=== PATIENT | female | born 1960 | race Caucasian/White ===

== ENCOUNTER → 2016-12-07 | Outpatient (CLI) | payer OTHER ==
--- NOTE | 2016-12-07 12:57 | CT ---
EXAMINATION TYPE: CT chest wo con DATE OF EXAM: 12/07/2016 12:46 PM COMPARISON: Previous study dated 08/09/2016. TECHNIQUE: Helical acquisition through the chest and upper abdomen was obtained without intravenous c ontrast. The data was reformatted in axial, coronal and sagittal projections. HISTORY: Shortness of breath CT DLP: 211.5 mGycm Automated exposure control for dose reduction was used. FINDINGS: There are changes of bullous emphysema throughout both lungs. There is some residual groundglass opac ity present. This has improved from previous. A 1.6 cm nodule seen in the left lingula previously tod ay measures 8.1 mm. A left basilar nodule which previously measured 10.1 mm today measures 9.8 mm Elongated nodule in the right lung previously is not visualized today. There is no significant axillary, internal mammary, mediastinal or hilar adenopathy. There is no pleu ral or pericardial fluid. The heart is not enlarged. Visualized portions of the upper abdomen are normal. There is minimal hypertrophic spondylosis within the spine. IMPRESSION: 1. EXTENSIVE CHANGES OF BULLOUS EMPHYSEMA. 2. BOTH LEFT-SIDED PULMONARY NODULES HAVE DECREASED IN SIZE FROM THE PREVIOUS STUDY. 3. RIGHT-SIDED PULMONARY NODULE WAS NOT IDENTIFIED.
== END | disposition home or self-care (01) ==
LOC: RADCTMAIN 12:20
PROVIDERS: ATTEND Internal Medicine
DX: J43.9 Emphysema, unspecified (principal); R91.8 Other nonspecific abnormal finding of lung field
CPT/HCPCS: 71250

== ENCOUNTER → 2017-06-01 | Outpatient (CLI) | payer OTHER ==
--- NOTE | 2017-06-01 12:42 | CT ---
EXAMINATION TYPE: CT chest wo con DATE OF EXAM: 06/01/2017 COMPARISON: CT chest dated 12/07/2016 and 08/05/2016. HISTORY: Follow up nodules per patient CT DLP: 217.5 mGycm. Automated Exposure Control for Dose Reduction was Utilized. TECHNIQUE: CT scan of the thorax is performed without IV contrast. FINDINGS: LUNGS: Severe panlobular bullous emphysematous changes are seen throughout the lungs with a gradient effect, greatest in the apices. Rounded noncalcified 9 mm left lower lobe pulmonary nodule is unchanged in size given differences in measurement technique. 7 mm left lower lobe noncalcified pulmonary nodule abutting the interlobar fis sure was previously described as lingular and is unchanged given differences in measurement technique . Focal area of right apical groundglass opacity is unchanged from the prior located medially on imag e 16 of series 4. Elongated lateral right lower lobe 7.5 mm noncalcified pulmonary nodule is unchange d in retrospect. Areas of pleural-parenchymal scarring are present bilaterally at the lower lobes. No pneumothorax or pleural effusion. No focal consolidation. The tracheobronchial tree is patent. MEDIASTINUM: Lack of IV contrast is noted to limit evaluation for mediastinal and especially hilar ad enopathy. There are no definitive greater than 1 cm hilar or mediastinal lymph nodes. No cardiomega ly or pericardial effusion is seen. OTHER: Descending duodenal diverticulum is air-filled and inspissated debris filled. Peripherally prem cified right lower outer quadrant breast mass is present, benign-appearing. This may relate to evolvi ng fat necrosis. Mild degenerative changes of the thoracic spine are noted as Schmorl's nodes and int ervertebral disc space narrowing. IMPRESSION: 1. Overall stable pulmonary nodules dating back to 08/05/2016. Follow-up CT thorax is recommended in 12 months for evaluation of interval growth. 2. No gross evidence of thoracic adenopathy. 3. Extensive panlobular bullous emphysematous changes.
== END ==
LOC: RADCTMAIN 12:07
PROVIDERS: ATTEND Internal Medicine Pulmonary Disease
DX: J43.9 Emphysema, unspecified (principal); R91.8 Other nonspecific abnormal finding of lung field
CPT/HCPCS: 71250

== ENCOUNTER → 2018-06-04 | Outpatient (CLI) | payer OTHER ==
--- NOTE | 2018-06-04 17:21 | CT ---
EXAMINATION TYPE: CT chest w con DATE OF EXAM: 06/04/2018 COMPARISON: 06/01/2017 HISTORY: SOB, Pulmonary nodules CT DLP: 253.60 mGycm, Automated exposure control for dose reduction was used. CONTRAST: Performed injected with 100 ml mL of Isovue 300. TECHNIQUE: Axial images were obtained at 5 mm thick sections. Reconstructed images are reviewed on [email or web address] computer in the coronal plane. FINDINGS: Portion of the thyroid visualized is normal. There is extensive emphysematous changes present. There is a 0.8 cm nodule within the periphery of the posterior lateral left lung base. Series 4 image 53. This is stable. There is a nodule within the left lower lobe adjacent to the greater fissure measuring 0.9 cm. Series 4 image 50. This has enlarged from the prior study. PET CT is recommended. No enlarged mediastinal or hilar adenopathy is evident. The ascending aorta diameter at the level o f the main pulmonary artery is 3.2 cm. The main pulmonary artery diameter at the bifurcation is 2.[address] sections are obtained through the upper abdomen. Abdomen is essentially unremarkable. IMPRESSIONS: 1. Enlarging nodular appearance adjacent to the major fissure at the left lung base previously measur ed 0.7 cm currently measures estimated 0.9 cm. PET/CT is recommended for additional evaluation
== END | disposition home or self-care (01) ==
LOC: RADCTMAIN 13:31
PROVIDERS: ATTEND Internal Medicine
DX: R91.8 Other nonspecific abnormal finding of lung field (principal); R06.02 Shortness of breath
CPT/HCPCS: 71260; Q9967

== ENCOUNTER → 2018-09-12 | Outpatient (CLI) | payer OTHER ==
--- NOTE | 2018-09-12 17:04 | CT ---
EXAMINATION TYPE: CT shoulder LT wo con DATE OF EXAM: 09/12/2018 COMPARISON: None HISTORY: Left shoulder pain and decreased range of motion. CT DLP: 244.4 mGycm Automated exposure control for dose reduction was used. FINDINGS: The scapula appears intact. Glenohumeral joint is anatomic. There is no evidence of humeral neck frac ture. AC joint is intact. Joint spaces are fairly normal. There is osteopenia. There is emphysema in the visualized left lung. IMPRESSION: EMPHYSEMA. OSTEOPENIA. NO FRACTURE SEEN. NO ACUTE ABNORMALITY OF THE LEFT SHOULDER.
== END | disposition home or self-care (01) ==
LOC: RADCTMAIN 16:25
PROVIDERS: ATTEND Internal Medicine
DX: M85.812 Other specified disorders of bone density and structure, left shoulder (principal); M25.512 Pain in left shoulder; Z88.5 Allergy status to narcotic agent

== ENCOUNTER 2018-09-16 13:47 | Emergency (ER) | payer OTHER ==
[2018-09-16] MEDS ORDERED: DIAZEPAM 5 MG/ML 2 ML INJ IVP STA (14:24)
--- NOTE | 2018-09-16 14:47 | ED ---
Dizziness HPI - General Chief Complaint: Dizziness Stated Complaint: dizziness Time Seen by Provider: 09/16/18 14:01 Source: patient Mode of arrival: wheelchair Limitations: no limitations - History of Present Illness Initial Comments: 58-year-old female patient presents to the emergency department today for evaluation of dizziness. Patient states that she will this yesterday morning. Patient states he never she moves her head the room starts to spin. States that she has felt like she has not passed out a couple times. Patient states she feels a lot of head pressure with this. Increased blurred vision. States she has also been having tinitis since the summer months. She denies any fevers or chills with this. Denies any chest pain, shortness of breath, nausea , or vomiting. Denies any numbness or tingling to her extremities. Denies any unilateral or generalized weakness. Patient does have history of brain aneurysm to the right frontal region. Patient denies any recent rash, abdominal pain, diarrhea, constipation, back pain, hematuria, dysuria, urinary urgency, urinary frequency, or any other complaints. - Related Data Home Medications Medication Instructions Recorded Confirmed Sleep Aid (Unknown) 1 tab PO HS 08/04/16 08/04/16 Previous Rx's Medication Instructions Recorded ALPRAZolam [Xanax] 0.25 mg PO QID PRN #30 tab 08/16/16 Acetaminophen Tab [Tylenol] 650 mg PO Q6HR PRN #0 tab 08/16/16 Albuterol Nebulized [Ventolin 2.5 mg INHALATION RT-QID #120 nebu 08/16/16 Nebulized] Formoterol Fumarate [Perforomist] 20 mcg INHALATION RT-BID #1 nebu 08/16/16 Ibuprofen [Motrin] 400 mg PO Q8HR PRN #0 tab 08/16/16 Montelukast [Singulair] 10 mg PO HS #30 tab 08/16/16 Theophylline 24 Hour [Keagan-24] 200 mg PO DAILY #30 cap.er.24h 08/16/16 guaiFENesin [Mucinex] 600 mg PO Q12HR tablet.er 08/16/16 guaiFENesin-Coden 100-10MG/5ML 10 ml PO Q6H PRN #0 cup 08/16/16 [Robitussin AC] predniSONE 20 mg PO DAILY #15 tab 08/16/16 Diazepam [Valium] 5 mg PO Q8HR PRN 3 Days #9 tab 09/16/18 Allergies Allergy/AdvReac Type Severity Reaction Status Date / Time meperidine [From Demerol] Allergy Rash/Hives/ Verified 09/16/18 13:56 Swelling Review of Systems ROS Statement: Those systems with pertinent positive or pertinent negative responses have been documented in the HPI. ROS Other: All systems not noted in ROS Statement are negative. Past Medical History Past Medical History: COPD, Fibromyalgia, Rheumatoid Arthritis (RA) Additional Past Medical History / Comment(s): FORGETFULLNESS History of Any Multi-Drug Resistant Organisms: None Reported Past Surgical History: Hernia Repair, Hysterectomy Additional Past Surgical History / Comment(s): brain aneurysm surgery "STATED HAS 12 COILS/STENTS". HEMORRHOIDECTOMY, RT INGUINAL HERNIA, D&C Past Anesthesia/Blood Transfusion Reactions: No Reported Reaction Past Psychological History: No Psychological Hx Reported Smoking Status: Former smoker Past Alcohol Use History: None Reported Past Drug Use History: None Reported - Past Family History Father Family Medical History: Cancer Additional Family Medical History / Comment(s): STOMACH/THROAT CANCER Mother Family Medical History: Myocardial Infarction (ME) General Exam Limitations: no limitations General appearance: alert, in no apparent distress, other (This is a well- developed, well-nourished adult female patient in no acute distress. Vital signs upon presentation are temperature 98.2F, pulse 106, respirations 18, blood pressure 117/83, pulse ox 97% on room air.) Eye exam: Present: EOMI, other. Absent: normal appearance, PERRL, scleral icterus, conjunctival injection, periorbital swelling Pupils: Present: unequal (Right pupils unresponsive to light), other (Left pupil is briskly responsive to light and accommodation. ) ENT exam: Present: normal exam, normal oropharynx, mucous membranes moist Respiratory exam: Present: normal lung sounds bilaterally. Absent: respiratory distress, wheezes, rales, rhonchi, stridor Cardiovascular Exam: Present: regular rate, normal rhythm, normal heart sounds. Absent: systolic murmur, diastolic murmur, rubs, gallop, clicks GI/Abdominal exam: Present: soft, normal bowel sounds. Absent: distended, tenderness, guarding, rebound, rigid Neurological exam: Present: alert, oriented X3, CN II-XII intact, other ( Strength in the upper extremities is 4/5, strength in lower extremities is 5/5.) Psychiatric exam: Present: normal affect, normal mood Skin exam: Present: warm, dry, intact, normal color. Absent: rash Course Vital Signs 09/16/18 13:53 Temperature 98.2 F Pulse Rate 106 H Respiratory 18 Rate Blood Pressure 117/83 O2 Sat by Pulse 97 Oximetry EKG Findings - EKG Comments: EKG Findings:: EKG obtained at 1533 shows normal sinus rhythm with a sinus arrhythmia. Ventricular rate is 86, IA interval 156, QRS duration 68, QT 368, QTC 440. Medical Decision Making - Medical Decision Making 58 year-old female patient presented to the emergency department today for complaints of dizziness. Patient is also reporting tinnitus since the summer. Physical examination did reveal a fixed irregular pupil on the right side. It is unclear whether this is acute or chronic as patient has had aneurysm surgery near her right optic nerve. Patient is otherwise neurologically intact with no focal deficits. Labs reviewed and were unremarkable. EKG showed normal sinus rhythm. Given the dizziness, description of symptoms, and presence of tinnitus it is felt this could be related to an inner ear issue. Patient symptoms did improve with administration of Valium. She will be discharged to follow-up with the ENT specialist as well as ophthalmology for further evaluation of the right eye. Return parameters were discussed in detail. She verbalizes understanding and agrees with this plan. - Lab Data Result diagrams: 09/16/18 14:20 09/16/18 14:20 Lab Results 09/16/18 09/16/18 09/16/18 Range/Units 14:20 14:20 14:20 WBC 6.7 (3.8-10.6) k/uL RBC 5.07 (3.80-5.40) m/uL Hgb 14.3 (11.4-16.0) gm/dL Hct 43.9 (34.0-46.0) % MCV 86.6 (80.0-100.0) fL MCH 28.2 (25.0-35.0) pg MCHC 32.6 (31.0-37.0) g/dL RDW 13.2 (11.5-15.5) % Plt Count 243 (150-450) k/uL Neutrophils % 55 % Lymphocytes % 34 % Monocytes % 6 % Eosinophils % 2 % Basophils % 1 % Neutrophils # 3.7 (1.3-7.7) k/uL Lymphocytes # 2.3 (1.0-4.8) k/uL Monocytes # 0.4 (0-1.0) k/uL Eosinophils # 0.2 (0-0.7) k/uL Basophils # 0.1 (0-0.2) k/uL PT (9.0-12.0) sec INR (<1.2) APTT (22.0-30.0) sec Sodium 138 (137-145) mmol/L Potassium 4.4 (3.5-5.1) mmol/L Chloride 106 (98-107) mmol/L Carbon Dioxide 23 (22-30) mmol/L Anion Gap 9 mmol/L BUN 16 (7-17) mg/dL Creatinine 0.62 (0.52-1.04) mg/dL Est GFR (CKD-EPI)AfAm >90 (>60 ml/min/1.73 sqM) Est GFR (CKD-EPI)NonAf >90 (>60 ml/min/1.73 sqM) Glucose 92 (74-99) mg/dL Calcium 9.4 (8.4-10.2) mg/dL Total Bilirubin 1.1 (0.2-1.3) mg/dL AST 17 (14-36) U/L ALT 27 (9-52) U/L Alkaline Phosphatase 77 (38-126) U/L Total Creatine Kinase 35 (30-135) U/L CK-MB (CK-2) 0.4 (0.0-2.4) ng/mL CK-MB (CK-2) Rel Index 1.1 Troponin I <0.012 (0.000-0.034) ng/mL Total Protein 6.9 (6.3-8.2) g/dL Albumin 4.0 (3.5-5.0) g/dL 09/16/18 Range/Units 14:20 WBC (3.8-10.6) k/uL RBC (3.80-5.40) m/uL Hgb (11.4-16.0) gm/dL Hct (34.0-46.0) % MCV (80.0-100.0) fL MCH (25.0-35.0) pg MCHC (31.0-37.0) g/dL RDW (11.5-15.5) % Plt Count (150-450) k/uL Neutrophils % % Lymphocytes % % Monocytes % % Eosinophils % % Basophils % % Neutrophils # (1.3-7.7) k/uL Lymphocytes # (1.0-4.8) k/uL Monocytes # (0-1.0) k/uL Eosinophils # (0-0.7) k/uL Basophils # (0-0.2) k/uL PT 9.9 (9.0-12.0) sec INR 1.0 (<1.2) APTT 22.7 (22.0-30.0) sec Sodium (137-145) mmol/L Potassium (3.5-5.1) mmol/L Chloride (98-107) mmol/L Carbon Dioxide (22-30) mmol/L Anion Gap mmol/L BUN (7-17) mg/dL Creatinine (0.52-1.04) mg/dL Est GFR (CKD-EPI)AfAm (>60 ml/min/1.73 sqM) Est GFR (CKD-EPI)NonAf (>60 ml/min/1.73 sqM) Glucose (74-99) mg/dL Calcium (8.4-10.2) mg/dL Total Bilirubin (0.2-1.3) mg/dL AST (14-36) U/L ALT (9-52) U/L Alkaline Phosphatase (38-126) U/L Total Creatine Kinase (30-135) U/L CK-MB (CK-2) (0.0-2.4) ng/mL CK-MB (CK-2) Rel Index Troponin I (0.000-0.034) ng/mL Total Protein (6.3-8.2) g/dL Albumin (3.5-5.0) g/dL - Radiology Data Radiology results: report reviewed, image reviewed CT brain without contrast was obtained. Ventricles are of normal size. No mass effect or midline shift. There is no sign of intracranial hemorrhage. There is a 170 and a dense metal artifact the right anterior sella turcica consistent with aneurysm clip. Calvarium is intact. Impression by Dr. Frias shows negative computed tomography scan of the brain. Aneurysm clip at the anterior right side of the sella turcica. Two-view x-ray of the chest is obtained. There is flattening of the diaphragm. His course density at the lung bases. There is no heart failure. There is some emphysematous changes in the upper lobes. Heart size is normal. There are no hilar masses. Impression by Dr. Frias shows COPD. Subsegmental atelectasis and scarring at the lung bases. This appears improved compared to last exam. No heart failure. Normal heart. Disposition Clinical Impression: Fixed pupil of right eye, Dizziness Disposition: HOME SELF-CARE Condition: Good Instructions: Dizziness (ED) Additional Instructions: Follow up with ENT and ophthalmology specialist. Take medications as directed. Return immediately for any new, worsening, or concerning symptoms. Prescriptions: Diazepam [Valium] 5 mg PO Q8HR PRN 3 Days #9 tab PRN Reason: Dizziness Is patient prescribed a controlled substance at d/c from ED?: Yes When asked, does pt state using other controlled substances?: No If prescribed controlled substance>3 days was MAPS reviewed?: Prescribed <3 Days Referrals: Rj Gavin MD [Primary Care Provider] - 1-2 days Tavo Montano MD [STAFF PHYSICIAN] - 1-2 days Jarad Ervin MD [STAFF PHYSICIAN] - 1-2 days Time of Disposition: 15:56
[2018-09-16 14:50] LABS: Basophils # (A) 0.1 k/uL (0-0.2); Basophils % (A) 1 %; Eosinophils # (A) 0.2 k/uL (0-0.7); Eosinophils % (A) 2 %; HCT 43.9 % (34.0-46.0); HGB 14.3 gm/dL (11.4-16.0); Lymphocytes # (A) 2.3 k/uL (1.0-4.8); Lymphocytes % (A) 34 %; MCH 28.2 pg (25.0-35.0); MCHC 32.6 g/dL (31.0-37.0); MCV 86.6 fL (80.0-100.0); Mean Platelet Volume 6.8; Monocytes # (A) 0.4 k/uL (0-1.0); Monocytes % (A) 6 %; Neutrophils # (A) 3.7 k/uL (1.3-7.7); Neutrophils % (A) 55 %; Platelet Count 243 k/uL (150-450); RBC 5.07 m/uL (3.80-5.40); RDW 13.2 % (11.5-15.5); WBC 6.7 k/uL (3.8-10.6)
[2018-09-16 14:58] LABS: ALT 27 U/L (9-52); AST 17 U/L (14-36); Alkaline Phosphatase 77 U/L (38-126); Anion Gap 9 mmol/L; Blood Urea Nitrogen 16 mg/dL (7-17); Calcium 9.4 mg/dL (8.4-10.2); Carbon Dioxide 23 mmol/L (22-30); Chloride 106 mmol/L (98-107); Glucose 92 mg/dL (74-99); Potassium 4.4 mmol/L (3.5-5.1); Sodium 138 mmol/L (137-145); Total Bilirubin 1.1 mg/dL (0.2-1.3); Total Protein 6.9 g/dL (6.3-8.2)
--- NOTE | 2018-09-16 15:07 | CT ---
EXAMINATION TYPE: CT brain wo con DATE OF EXAM: 09/16/2018 COMPARISON: None HISTORY: History of aneurysm and repair. Dizziness today. CT DLP: 1130.4 mGycm Automated exposure control for dose reduction was used. FINDINGS: Ventricles of normal size. There is no mass effect nor midline shift. There is no sign of intracrania l hemorrhage. There is a 1 cm dense metal artifact at the anterior right sella turcica consistent wit h aneurysm clip. Calvarium is intact. IMPRESSION: NEGATIVE CT SCAN OF THE BRAIN. ANEURYSM CLIP AT THE ANTERIOR RIGHT SIDE OF THE SELLA TURCICA.
[2018-09-16 15:09] LABS: Creatine Kinase 35 U/L (30-135)
[2018-09-16 15:20] LABS: Partial Thromboplastin Time 22.7 sec (22.0-30.0); Prothrombin Time 9.9 sec (9.0-12.0)
[2018-09-16 15:22] LABS: Creatine Kinase MB 0.4 ng/mL (0.0-2.4); Troponin I <0.012 ng/mL (0.000-0.034)
--- NOTE | 2018-09-16 15:22 | XR ---
EXAMINATION TYPE: XR chest 2V DATE OF EXAM: 09/16/2018 COMPARISON: 08/15/2016 HISTORY: Vertigo for 2 days TECHNIQUE: Frontal and lateral views of the chest are obtained. FINDINGS: There is flattening of the diaphragm. There is coarse linear density at the lung bases. Th ere is no heart failure. There is some emphysematous change in the upper lobes. Heart size is normal. There are no hilar masses. IMPRESSION: COPD. Subsegmental atelectasis and scarring at the lung bases. This appears improved com pared to last exam. No heart failure. Normal heart.
[2018-09-16 16:18] VITALS: BP 112/64; PULSE 94; RESP 16; TEMP 98.5
== END 2018-09-16 16:17 | disposition home or self-care (01) ==
LOC: EC 13:47
DX: H57.04 Mydriasis (principal); J44.9 Chronic obstructive pulmonary disease, unspecified; J98.11 Atelectasis; R91.8 Other nonspecific abnormal finding of lung field; H93.19 Tinnitus, unspecified ear; Z87.891 Personal history of nicotine dependence; Z88.5 Allergy status to narcotic agent; Z79.899 Other long term (current) drug therapy; Z98.890 Other specified postprocedural states
CPT/HCPCS: 36415; 93005; 80053; 82550; 82553; 84484; 85025; 85610; 85730; 71046; 70450; 99284; 96374; J3360

== ENCOUNTER 2019-01-02 16:34 | Inpatient (IN) | payer OTHER ==
[2019-01-02] MEDS ORDERED: ACETAMINOPHEN TAB 500 MG TAB PO STA (17:00)
[2019-01-02] MEDS ORDERED: IBUPROFEN 600 MG TAB PO STA (17:00)
--- NOTE | 2019-01-02 17:05 | ED ---
General Adult HPI - General Chief complaint: Shortness of Breath Stated complaint: BHARATH Time Seen by Provider: 01/02/19 16:35 Source: patient, RN notes reviewed Mode of arrival: wheelchair Limitations: no limitations - History of Present Illness Initial comments: This is a 58-year-old female with past medical history significant for COPD. Patient comes in today because she is short of breath last couple of days and has been having a fever. Patient states she's been coughing and has had some sputum production. Patient denies any chest pain or palpitations. Patient denies getting any Pneumovax or influenza vaccine because her immune system can handle. Patient denies abdominal pain patient denies nausea vomiting diarrhea. Patient denies any headache patient denies numbness weakness. Patient denies lightheadedness dizziness or near syncopal episode. - Related Data Home Medications Medication Instructions Recorded Confirmed Sleep Aid (Unknown) 1 tab PO HS 08/04/16 01/02/19 Allergies Allergy/AdvReac Type Severity Reaction Status Date / Time meperidine [From Demerol] Allergy Rash/Hives/ Verified 01/02/19 16:54 Swelling Review of Systems ROS Statement: Those systems with pertinent positive or pertinent negative responses have been documented in the HPI. ROS Other: All systems not noted in ROS Statement are negative. Past Medical History Past Medical History: COPD, Fibromyalgia, Rheumatoid Arthritis (RA) Additional Past Medical History / Comment(s): FORGETFULLNESS History of Any Multi-Drug Resistant Organisms: None Reported Past Surgical History: Hernia Repair, Hysterectomy Additional Past Surgical History / Comment(s): brain aneurysm surgery "STATED HAS 12 COILS/STENTS". HEMORRHOIDECTOMY, RT INGUINAL HERNIA, D&C Past Anesthesia/Blood Transfusion Reactions: No Reported Reaction Past Psychological History: No Psychological Hx Reported Smoking Status: Former smoker Past Alcohol Use History: None Reported Past Drug Use History: None Reported - Past Family History Father Family Medical History: Cancer Additional Family Medical History / Comment(s): STOMACH/THROAT CANCER Mother Family Medical History: Myocardial Infarction ([place]) General Exam - General Exam Comments Initial Comments: GENERAL: Patient is well-developed and well-nourished. Patient is nontoxic and well- hydrated and is in mild distress. ENT: Neck is soft and supple. No significant lymphadenopathy is noted. Oropharynx is clear. Moist mucous membranes. Neck has full range of motion without eliciting any pain. EYES: The sclera were anicteric and conjunctiva were pink and moist. Extraocular movements were intact and pupils were equal round and reactive to light. Eyelids were unremarkable. PULMONARY: Diminished breath sounds. Good breath sounds bilaterally. No audible rales rhonchi or wheezing was noted. CARDIOVASCULAR: There is a regular rate and rhythm without any murmurs gallops or rubs. ABDOMEN: Soft and nontender with normal bowel sounds. No palpable organomegaly was noted. There is no palpable pulsatile mass. SKIN: Skin is clear with no lesions or rashes and otherwise unremarkable. NEUROLOGIC: Patient is alert and oriented x3. Cranial nerves II through XII are grossly intact. Motor and sensory are also intact. Normal speech, volume and content. Symmetrical smile. MUSCULOSKELETAL: Normal extremities with adequate strength and full range of motion. No lower extremity swelling or edema. No calf tenderness. LYMPHATICS: No significant lymphadenopathy is noted PSYCHIATRIC: Normal psychiatric evaluation. Limitations: no limitations Course Vital Signs 01/02/19 01/02/19 01/02/19 16:36 17:56 18:33 Temperature 100.3 F H 101.3 F H Pulse Rate 132 H 126 H 117 H Respiratory 30 H 28 H 28 H Rate Blood Pressure 155/85 137/83 133/75 O2 Sat by Pulse 95 98 97 Oximetry Medical Decision Making - Medical Decision Making Patient refuses any albuterol treatments. Patient states up-year-old gives her pneumonia EKG shows sinus tachycardia at 122 bpm [place] interval is 160 QRS is 66 QT interval 394 QTC is 418. Patient's EKG does show some slight ST segment depression in leads II, III, and F aVF as well as V5 and V6 and this was seen slightly in an old EKG. Patient continues to refuse all albuterol treatments. Chest x-ray shows more atelectasis I'm suspicious of a right lower lobe pneumonia COPD exacerbation. Patient remains tachycardic but patient still has a temperat ure. - Lab Data Result diagrams: 01/02/19 17:01/02/19 17: Lab Results 01/02/19 01/02/19 01/02/19 Range/Units 17:01 17: 17: WBC 8.8 (3.8-10.6) k/uL RBC 4.75 (3.80-5.40) m/uL Hgb 13.3 (11.4-16.0) gm/dL Hct 42.3 (34.0-46.0) % MCV 89.2 (80.0-100.0) fL MCH 28.0 (25.0-35.0) pg MCHC 31.4 (31.0-37.0) g/dL RDW 13.7 (11.5-15.5) % Plt Count 301 (150-450) k/uL Neutrophils % 80 % Lymphocytes % 10 % Monocytes % 6 % Eosinophils % 2 % Basophils % 1 % Neutrophils # 7.1 (1.3-7.7) k/uL Lymphocytes # 0.9 L (1.0-4.8) k/uL Monocytes # 0.5 (0-1.0) k/uL Eosinophils # 0.2 (0-0.7) k/uL Basophils # 0.1 (0-0.2) k/uL PT (9.0-12.0) sec INR (<1.2) APTT (22.0-30.0) sec Sodium 141 (137-145) mmol/L Potassium 4.4 (3.5-5.1) mmol/L Chloride 106 (98-107) mmol/L Carbon Dioxide 26 (22-30) mmol/L Anion Gap 9 mmol/L BUN 13 (7-17) mg/dL Creatinine 0.60 (0.52-1.04) mg/dL Est GFR (CKD-EPI)AfAm >90 (>60 ml/min/1.73 sqM) Est GFR (CKD-EPI)NonAf >90 (>60 ml/min/1.73 sqM) Glucose 93 (74-99) mg/dL Plasma Lactic Acid [place] 1.3 (0.7-2.0) mmol/L Calcium 9.9 (8.4-10.2) mg/dL Total Bilirubin 0.8 (0.2-1.3) mg/dL AST 18 (14-36) U/L ALT 21 (9-52) U/L Alkaline Phosphatase 87 (38-126) U/L Total Protein 7.2 (6.3-8.2) g/dL Albumin 4.2 (3.5-5.0) g/dL Urine Color Urine Appearance (Clear) Urine pH (5.0-8.0) Ur Specific [place] (1.001-1.035) Urine Protein (Negative) Urine Glucose (UA) (Negative) Urine Ketones (Negative) Urine Blood (Negative) Urine Nitrite (Negative) Urine Bilirubin (Negative) Urine Urobilinogen (<2.0) mg/dL Ur Leukocyte Esterase (Negative) Urine RBC (0-5) /hpf Urine WBC (0-5) /hpf Ur Squamous Epith Cells (0-4) /hpf Amorphous Sediment (None) /hpf Urine Bacteria (None) /hpf Urine Mucus (None) /hpf Influenza Type A RNA (Not Detectd) Influenza Type B (PCR) (Not Detectd) 01/02/19 01/02/19 01/02/19 Range/Units 17:01 17:19 17:26 WBC (3.8-10.6) k/uL RBC (3.80-5.40) m/uL Hgb (11.4-16.0) gm/dL Hct (34.0-46.0) % MCV (80.0-100.0) fL MCH (25.0-35.0) pg MCHC (31.0-37.0) g/dL RDW (11.5-15.5) % Plt Count (150-450) k/uL Neutrophils % % Lymphocytes % % Monocytes % % Eosinophils % % Basophils % % Neutrophils # (1.3-7.7) k/uL Lymphocytes # (1.0-4.8) k/uL Monocytes # (0-1.0) k/uL Eosinophils # (0-0.7) k/uL Basophils # (0-0.2) k/uL PT 9.9 (9.0-12.0) sec INR 0.9 (<1.2) APTT 23.3 (22.0-30.0) sec Sodium (137-145) mmol/L Potassium (3.5-5.1) mmol/L Chloride (98-107) mmol/L Carbon Dioxide (22-30) mmol/L Anion Gap mmol/L BUN (7-17) mg/dL Creatinine (0.52-1.04) mg/dL Est GFR (CKD-EPI)AfAm (>60 ml/min/1.73 sqM) Est GFR (CKD-EPI)NonAf (>60 ml/min/1.73 sqM) Glucose (74-99) mg/dL Plasma Lactic Acid [place] (0.7-2.0) mmol/L Calcium (8.4-10.2) mg/dL Total Bilirubin (0.2-1.3) mg/dL AST (14-36) U/L ALT (9-52) U/L Alkaline Phosphatase (38-126) U/L Total Protein (6.3-8.2) g/dL Albumin (3.5-5.0) g/dL Urine Color Yellow Urine Appearance Clear (Clear) Urine pH 5.0 (5.0-8.0) Ur Specific [place] 1.014 (1.001-1.035) Urine Protein Negative (Negative) Urine Glucose (UA) Negative (Negative) Urine Ketones Negative (Negative) Urine Blood Negative (Negative) Urine Nitrite Negative (Negative) Urine Bilirubin Negative (Negative) Urine Urobilinogen <2.0 (<2.0) mg/dL Ur Leukocyte Esterase Large H (Negative) Urine RBC 3 (0-5) /hpf Urine WBC 13 H (0-5) /hpf Ur Squamous Epith Cells 1 (0-4) /hpf Amorphous Sediment Rare H (None) /hpf Urine Bacteria Rare H (None) /hpf Urine Mucus Occasional H (None) /hpf Influenza Type A RNA Not Detected (Not Detectd) Influenza Type B (PCR) Not Detected (Not Detectd) Critical Care Time Critical Care Time: Yes Total Critical Care Time: 35 Disposition Clinical Impression: Pneumonia, Dyspnea Disposition: ADMITTED IP TO THIS HOSP Referrals: Rj Gavin MD [Primary Care Provider] - 1-2 days Time of Disposition: 18:51
[2019-01-02] MEDS: SODIUM CHLORIDE 0.9% 500 ML 500 ML IV SCH ×2 (17:18→17:19)
[2019-01-02 17:22] LABS: Basophils # (A) 0.1 k/uL (0-0.2); Basophils % (A) 1 %; Eosinophils # (A) 0.2 k/uL (0-0.7); Eosinophils % (A) 2 %; HCT 42.3 % (34.0-46.0); HGB 13.3 gm/dL (11.4-16.0); Lymphocytes # (A) 0.9 k/uL (1.0-4.8); Lymphocytes % (A) 10 %; MCHC 31.4 g/dL (31.0-37.0); MCV 89.2 fL (80.0-100.0); Mean Platelet Volume 7.1; Monocytes # (A) 0.5 k/uL (0-1.0); Monocytes % (A) 6 %; Neutrophils # (A) 7.1 k/uL (1.3-7.7); Neutrophils % (A) 80 %; Platelet Count 301 k/uL (150-450); RBC 4.75 m/uL (3.80-5.40); RDW 13.7 % (11.5-15.5); WBC 8.8 k/uL (3.8-10.6)
[2019-01-02 17:33] LABS: ALT 21 U/L (9-52); AST 18 U/L (14-36); Albumin 4.2 g/dL (3.5-5.0); Alkaline Phosphatase 87 U/L (38-126); Anion Gap 9 mmol/L; Blood Urea Nitrogen 13 mg/dL (7-17); Calcium 9.9 mg/dL (8.4-10.2); Carbon Dioxide 26 mmol/L (22-30); Chloride 106 mmol/L (98-107); Glucose 93 mg/dL (74-99); Potassium 4.4 mmol/L (3.5-5.1); Sodium 141 mmol/L (137-145); Total Bilirubin 0.8 mg/dL (0.2-1.3); Total Protein 7.2 g/dL (6.3-8.2)
[2019-01-02 17:35] LABS: INR 0.9 (<1.2); Partial Thromboplastin Time 23.3 sec (22.0-30.0); Prothrombin Time 9.9 sec (9.0-12.0)
--- NOTE | 2019-01-02 17:47 | XR ---
EXAMINATION TYPE: XR chest 2V DATE OF EXAM: 01/02/2019 COMPARISON: September 16, 2018 HISTORY: Fever and short of breath TECHNIQUE: Frontal and lateral views of the chest are obtained. FINDINGS: There is patchy linear density at the lung bases consistent with atelectasis. There is emp hysema in the upper lobes. Arch size is normal. Mediastinum is normal. There are chest leads. IMPRESSION: Emphysema. Increasing atelectasis in the lower lung banda compared to last exam.
[2019-01-02 17:48] LABS: Amorphous Sediment,Urine Rare /hpf; Appearance,Urine Clear (Clear); Bacteria,Urine Rare /hpf; Bilirubin,Urine Negative (Negative); Blood,Urine Negative (Negative); Color,Urine Yellow; Glucose,Urine (UA) Negative (Negative); Ketones,Urine Negative (Negative); Leukocyte Esterase,Urine Large (Negative); Mucus,Urine Occasional /hpf; Nitrite,Urine Negative (Negative); Protein,Urine Negative (Negative); RBC,Urine 3 /hpf (0-5); Specific Gravity,Urine 1.014 (1.001-1.035); Squamous Epithelial Cell,Urine 1 /hpf (0-4); Urobilinogen,Urine <2.0 mg/dL (<2.0); WBC,Urine 13 /hpf (0-5)
[2019-01-02] MEDS ORDERED: methylPREDNISolone SOD SUCCI 125 MG/2 ML VIAL IV STA (18:20)
[2019-01-02] MEDS ORDERED: cefTRIAXone IN SWFI 1,000 MG/10 ML SYRINGE IVP STA (18:34)
--- NOTE | 2019-01-02 19:48 | CT ---
EXAMINATION TYPE: CT chest angio for PE DATE OF EXAM: 01/02/2019 COMPARISON: 08/09/2016 HISTORY: SOB CT DLP: 303.5 mGycm Automated exposure control for dose reduction was used. CONTRAST: CT Chest for pulmonary embolism performed with with IV Contrast, patient injected with 68cc mL of Iso alma 370. FINDINGS: There are 3-D post processed images. There is diffuse bullous emphysema. There is pulmonary hyperinflation and flattening of the diaphragm . There is no mediastinal adenopathy. Thoracic aorta shows no evidence of aneurysm or dissection. The ascending aorta measures 3.3 cm. There are no hilar masses. There is normal contrast opacification of the pulmonary arteries. There are no filling defects. There is some linear infiltrate and atelectasis at the right posterior lung base. There is no pleural effusion. There is a noncalcified 8 mm subpleural nodule lateral left lower lobe. There is an irregu lar 1 cm noncalcified nodular density in the anterior basal segment left lower lobe. There is patchy linear density in the right middle lobe. The bony thorax is intact. The ribs appear intact. IMPRESSION: No evidence of pulmonary embolism. Left lower lobe nodules unchanged compared to old CT scan 08/09/20 16 and therefore benign. There is some linear infiltrate and atelectasis right lower lobe unchanged. There is overall significant improved aeration of the lung bases compared to last exam. Pulmonary emphysema.
[2019-01-03] MEDS: methylPREDNISolone SOD SUCCI 125 MG/2 ML VIAL IV SCH ×2 (00:17→05:28)
[2019-01-03] MEDS: ACETAMINOPHEN TAB 325 MG TAB PO PRN ×2 (08:14→23:53)
[2019-01-03] MEDS: PROMETHAZ-COD 6.25-10 MG/5 ML 5 ML CUP PO PRN ×2 (08:14→20:04)
[2019-01-03] MEDS ORDERED: IPRATROPIUM-ALBUTEROL 3 ML NEB INHALATION PRN (11:08)
[2019-01-03] MEDS ORDERED: BUTALB/APAP/CAFF 50-325-40MG TAB PO PRN (12:16)
[2019-01-03] MEDS: FAMOTIDINE 20 MG TAB PO SCH ×2 (12:26→20:04)
--- NOTE | 2019-01-03 13:01 | P.HPIM ---
History of Present Illness 58-year-old female came with symptoms of shortness of breath fever chills body aches influenza is negative patient doesn't use any oxygen at home doesn't appear to have advanced emphysema as per the CAT scan there is no air bronchogr am has mild bibasilar infiltrates may be atelectasis patient denied any nausea vomiting patient denied any dysuria urine is mildly abnormal although not impressive for UTI patient is presently on Rocephin temporally will continue that may not require any antibiotics on discharge patient is comparing of cough unable to bring up anything. Patient was on IV steroids patient has fairly good air entry bilateral lung banda ulcerations the steroids to oral. Patient declined any inhalational treatments including albuterol ipratropium R any other kind of inhalational treatments including nebulizers or inhalers, in spite of counseling. I believe patient cannot tolerate the mask it's anxious the past and she believes Symbicort made her have infection in the heart in the past. Patient today is comparing of burning sensation and acid reflux symptoms probably from systemic steroids. Review of Systems REVIEW OF SYSTEMS: CONSTITUTIONAL: No fever, no malaise, no fatigue. HEENT: No recent visual problems or hearing problems. Denied any sore throat. CARDIOVASCULAR: No orthopnea, PND, no palpitations, no syncope. PULMONARY: no hemoptysis. GASTROINTESTINAL: No diarrhea, no nausea, no vomiting, no abdominal pain. NEUROLOGICAL: No headaches, no weakness, no numbness. HEMATOLOGICAL: Denies any bleeding or petechiae. GENITOURINARY: Denies any burning micturition, frequency, or urgency. MUSCULOSKELETAL/RHEUMATOLOGICAL: Denies any joint pain, swelling, or any muscle pain. ENDOCRINE: Denies any polyuria or polydipsia. The rest of the 14-point review of systems is negative. Past Medical History Past Medical History: COPD, Fibromyalgia, Rheumatoid Arthritis (RA) Additional Past Medical History / Comment(s): FORGETFULLNESS History of Any Multi-Drug Resistant Organisms: None Reported Past Surgical History: Hernia Repair, Hysterectomy Additional Past Surgical History / Comment(s): brain aneurysm surgery "STATED HAS 12 COILS/STENTS". HEMORRHOIDECTOMY, RT INGUINAL HERNIA, D&C Past Anesthesia/Blood Transfusion Reactions: No Reported Reaction Past Psychological History: No Psychological Hx Reported Smoking Status: Former smoker Past Alcohol Use History: None Reported Additional Past Alcohol Use History / Comment(s): SMOKED FOR 40 YEARS, QUIT JANUARY [address] DOWN FROM 3 PPD TO 1/2 PPD THEN QUIT. Past Drug Use History: None Reported - Past Family History Father Family Medical History: Cancer Additional Family Medical History / Comment(s): STOMACH/THROAT CANCER Mother Family Medical History: Myocardial Infarction ([place]) Medications and Allergies Home Medications Medication Instructions Recorded Confirmed Type Sleep Aid (Unknown) 1 tab PO HS 08/04/16 01/02/19 History Allergies Allergy/AdvReac Type Severity Reaction Status Date / Time meperidine [From Demerol] Allergy Rash/Hives/ Verified 01/02/19 16:54 Swelling Physical Exam Vitals: Vital Signs Temp Pulse Pulse Resp BP BP Pulse Ox 01/03/19 07:00 99 F 98 16 129/80 95 01/03/19 00:15 16 01/03/19 00:11 98.1 F 103 H 16 109/69 97 01/02/19 22:00 18 01/02/19 21:33 99 01/02/19 20:45 98.9 F 101 H 16 128/82 98 01/02/19 20:01 94 L 01/02/19 19:35 101.2 F H 109 H 21 138/77 97 01/02/19 18:33 101.3 F H 117 H 28 H 133/75 97 01/02/19 17:56 126 H 28 H 137/83 98 01/02/19 16:36 100.3 F H 132 H 30 H 155/85 95 Intake and Output 01/02/19 01/03/19 01/03/19 22:59 06:59 14:59 Intake Total 810 296 Balance 810 296 Intake: Oral 810 296 Other: Voiding Method Toilet Toilet Diaper Diaper # Voids 1 Weight 73.936 kg PHYSICAL EXAMINATION: GENERAL: The patient is alert and oriented x3, not in any acute distress. Well developed, well nourished. HEENT: Pupils are round and equally reacting to light. EOMI. No scleral icterus. No conjunctival pallor. Normocephalic, atraumatic. No pharyngeal erythema. No thyromegaly. CARDIOVASCULAR: S1 and S2 present. No murmurs, rubs, or gallops. PULMONARY: Chest is clear to auscultation, no wheezing or crackles. ABDOMEN: Soft, nontender, nondistended, normoactive bowel sounds. No palpable organomegaly. MUSCULOSKELETAL: No joint swelling or deformity. EXTREMITIES: No cyanosis, clubbing, or pedal edema. NEUROLOGICAL: Gross neurological examination did not reveal any focal deficits. SKIN: No rashes. Results CBC & Chem 7: 01/02/19 17:01 01/02/19 17:01 Labs: Abnormal Lab Results - Last 24 Hours (Table) 01/02/19 01/02/19 Range/Units 17:01 17:26 Lymphocytes # 0.9 L (1.0-4.8) k/uL Ur Leukocyte Esterase Large H (Negative) Urine WBC 13 H (0-5) /hpf Amorphous Sediment Rare H (None) /hpf Urine Bacteria Rare H (None) /hpf Urine Mucus Occasional H (None) /hpf Microbiology - Last 24 Hours (Table) 01/02/19 17:26 Urine Culture - Preliminary Urine,Voided Thrombosis Risk Factor Assmnt - Choose All That Apply Any of the Below Risk Factors Present?: Yes Each Factor Represents 1 point: Abnormal pulmonary function (COPD), Age 41-60 years Thrombosis Risk Factor Assessment Total Risk Factor Score: 2 Thrombosis Risk Factor Assessment Level: Low Risk Assessment and Plan Plan: -COPD exacerbation appears to be mild patient will be switched to oral steroids patient may have some viral illness if not plans I'll repeat the influenza PCR, for now will continue with Rocephin may not require any antibiotics upon discharge. Patient is afebrile will be discharged tomorrow. Continue with oral steroids. Patient quit smoking years ago -Fibromyalgia -Gastroesophageal reflux disease due to systemic steroids patient will be started on GI prophylaxis -Fever and the systemic inflammatory response syndrome probably due to viral respiratory illness.
[2019-01-03] MEDS: IPRATROPIUM-ALBUTEROL 3 ML NEB INHALATION SCH ×3 (13:26→21:36)
[2019-01-03] MEDS ORDERED: BENZOCAINE/MENTHOL LOZENG 1 EACH LOZENGE MUCOUS MEM PRN (14:30)
--- NOTE | 2019-01-03 14:35 | P.CNPUL ---
History of Present Illness Consult date: 01/03/19 Reason for consult: dyspnea, cough, chest pain, COPD Chief complaint: Shortness of breath History of present illness: 58 year old female presented to the emergency department complaining of shortness of breath. The patient states this is been ongoing for a couple of days. She is complaining of burning in her throat and her sore throat. She is also complaining of cough. She states her chest hurts really bad when she coughs and sneezes. She did have a temperature of 101.3. She did produce phlegm yesterday. She does nott use any oxygen at home. She has declined any inhaler, nebulizers in the past. She states that they give her infections. The patient was last seen in the pulmonary office in July 2000 and we are following pulmonary nodules. The patient did have CT scan which showed the nodules are unchanged. It also shows atelectasis. The patient had pulmonary function test in May 2018 which showed severe COPD with FEV1 of 41% of predicted. Review of Systems All systems: negative Past Medical History Past Medical History: COPD, Fibromyalgia, Rheumatoid Arthritis (RA) Additional Past Medical History / Comment(s): FORGETFULLNESS History of Any Multi-Drug Resistant Organisms: None Reported Past Surgical History: Hernia Repair, Hysterectomy Additional Past Surgical History / Comment(s): brain aneurysm surgery "STATED HAS 12 COILS/STENTS". HEMORRHOIDECTOMY, RT INGUINAL HERNIA, D&C Past Anesthesia/Blood Transfusion Reactions: No Reported Reaction Past Psychological History: No Psychological Hx Reported Smoking Status: Former smoker Past Alcohol Use History: None Reported Additional Past Alcohol Use History / Comment(s): SMOKED FOR 40 YEARS, QUIT JANUARY [address] DOWN FROM 3 PPD TO 1/2 PPD THEN QUIT. Past Drug Use History: None Reported - Past Family History Father Family Medical History: Cancer Additional Family Medical History / Comment(s): STOMACH/THROAT CANCER Mother Family Medical History: Myocardial Infarction ([place]) Medications and Allergies Home Medications Medication Instructions Recorded Confirmed Type Sleep Aid (Unknown) 1 tab PO HS 08/04/16 01/02/19 History Allergies Allergy/AdvReac Type Severity Reaction Status Date / Time meperidine [From Demerol] Allergy Rash/Hives/ Verified 01/02/19 16:54 Swelling Physical Exam Osteopathic Statement: *. No significant issues noted on an osteopathic structural exam other than those noted in the History and Physical/Consult. Vitals: Vital Signs Temp Pulse Pulse Resp BP BP Pulse Ox 01/03/19 07:00 99 F 98 16 129/80 95 01/03/19 00:15 16 01/03/19 00:11 98.1 F 103 H 16 109/69 97 01/02/19 22:00 18 01/02/19 21:33 99 01/02/19 20:45 98.9 F 101 H 16 128/82 98 01/02/19 20:01 94 L 01/02/19 19:35 101.2 F H 109 H 21 138/77 97 01/02/19 18:33 101.3 F H 117 H 28 H 133/75 97 01/02/19 17:56 126 H 28 H 137/83 98 01/02/19 16:36 100.3 F H 132 H 30 H 155/85 95 Intake and Output 01/02/19 01/03/19 01/03/19 22:59 06:59 14:59 Intake Total 810 414 Balance 810 414 Intake: Oral 810 414 Other: Voiding Method Toilet Toilet Diaper Diaper # Voids 1 1 Weight 73.936 kg Gen.: Patient is alert and oriented 3, no acute distress Cardiovascular: Regular rate and rhythm, S1/S2 Lungs: Diminished breath sounds bilaterally no wheezes rales or rhonchi Abdomen: Soft nontender nondistended positive bowel sounds Extremities: No edema Results - Laboratory Findings CBC and BMP: 01/02/19 17:01 01/02/19 17:01 PT/INR, D-dimer PT 9.9 sec (9.0-12.0) 01/02/19 17:01 INR 0.9 (<1.2) 01/02/19 17:01 Abnormal lab findings: Abnormal Labs 01/02/19 01/02/19 01/03/19 17:01 17:26 12:25 Lymphocytes # 0.9 L Ur Leukocyte Esterase Large H Urine WBC 13 H Amorphous Sediment Rare H Urine Bacteria Rare H Urine Mucus Occasional H Influenza Type A RNA Detected H Assessment and Plan Assessment: Acute exacerbation of COPD and emphysema, severe, FEV1 41% of predicted Bronchospasm Tracheobronchitis Pharyngitis Bibasilar atelectasis Unchanged Multiple pulmonary nodules, left lower lobe measuring 7.1 mm an 8.2 mm, right lower lobe 7.5 mm History of tobacco abuse, in remission Chronic migraines O2 to maintain saturation greater than or equal to 88%, currently on RA Continued tobacco cessation strongly recommended She will need repeat chest CT as an outpatient in 12 months ABX: Rocephin and Azithromycin Robitussin Rapid strep test Cepacol lozenges IS and pulmonary hygiene GI and DVT prophylaxis Patient adamantly declines inhalers/nebulizer despite education Ambulatory pulse ox for home O2 eval prior to discharge Thank you for this consultation. We will continue to follow along.
[2019-01-03] MEDS: AZITHROMYCIN 250 MG TAB PO SCH (15:56)
[2019-01-03] MEDS: HEPARIN SODIUM,PORCINE 5,000 UNIT/ML 1 ML VIAL SQ SCH ×2 (15:56→23:54)
[2019-01-04] MEDS: PROMETHAZ-COD 6.25-10 MG/5 ML 5 ML CUP PO PRN ×4 (02:27→21:55)
[2019-01-04] MEDS: IPRATROPIUM-ALBUTEROL 3 ML NEB INHALATION SCH ×2 (08:45→12:55)
[2019-01-04] MEDS: predniSONE 20 MG TAB PO SCH (09:00)
[2019-01-04] MEDS: HEPARIN SODIUM,PORCINE 5,000 UNIT/ML 1 ML VIAL SQ SCH ×2 (09:00→15:21)
[2019-01-04] MEDS: FAMOTIDINE 20 MG TAB PO SCH ×2 (09:00→20:49)
[2019-01-04] MEDS: ACETAMINOPHEN TAB 325 MG TAB PO PRN (09:27)
[2019-01-04] MEDS: AZITHROMYCIN 250 MG TAB PO SCH (09:56)
[2019-01-04] MEDS: OSELTAMIVIR 75 MG CAP PO SCH ×2 (11:38→20:50)
--- NOTE | 2019-01-04 16:28 | P.PN ---
Subjective 58-year-old the female admitted for COPD exacerbation and agreed the PCR is positive for influenza A patient was started on Tamiflu there is no evidence pneumonia will discontinue Rocephin and azithromycin patient was started on oxygen for possible secondary bacterial bronchitis most common will be staph. Patient is still had low-grade fevers still has body aches. Completing of tiredness. Patient will be continued on IV fluids for permanent possibly can be discharged tomorrow -Constitutional: As mentioned in HPI. Cardio vascular: denied any chest pain, palpitations Gastrointestinal denied any nausea vomiting Pulmonary: Denied any shortness of breath cough Neurologic denied any new focal deficits All inpatient medications were reviewed and appropriate changes in these medications as dictated in the interval history and assessment and plan. Objective - Vital Signs Vital signs: Vital Signs Temp 98.3 F 01/04/19 07:30 Pulse 99 01/04/19 07:30 Resp 16 01/04/19 01:00 BP 123/73 01/04/19 07:30 Pulse Ox 95 01/04/19 07:30 Intake & Output 01/03/19 01/04/19 01/04/19 18:59 06:59 18:59 Intake Total 1010 540 600 Balance 1010 540 600 Intake: Oral 1010 540 600 Other: Voiding Method Toilet Toilet Toilet # Voids 1 1 1 - Exam PHYSICAL EXAMINATION: GENERAL: The patient is alert and oriented x3, not in any acute distress. Well developed, well nourished. HEENT: Pupils are round and equally reacting to light. EOMI. No scleral icterus. No conjunctival pallor. Normocephalic, atraumatic. No pharyngeal erythema. No thyromegaly. CARDIOVASCULAR: S1 and S2 present. No murmurs, rubs, or gallops. PULMONARY: Chest is clear to auscultation, no wheezing or crackles. ABDOMEN: Soft, nontender, nondistended, normoactive bowel sounds. No palpable organomegaly. MUSCULOSKELETAL: No joint swelling or deformity. EXTREMITIES: No cyanosis, clubbing, or pedal edema. NEUROLOGICAL: Gross neurological examination did not reveal any focal deficits. SKIN: No rashes. - Labs CBC & Chem 7: 01/02/19 17:01 01/02/19 17:01 Labs: Microbiology - Last 24 Hours (Table) 01/02/19 17:26 Urine Culture - Final Urine,Voided 01/03/19 15:00 Group A Strep Throat Culture - Preliminary Throat 01/02/19 17:01 Blood Culture - Preliminary Blood No Growth after 24 hours Assessment and Plan Plan: -COPD exacerbation appears to be mild p -Acute influenza A leading to fever and may be secondary bacterial bronchitis -Fibromyalgia -Gastroesophageal reflux disease due to systemic steroids patient will be started on GI prophylaxis -Fever and the systemic inflammatory response syndrome probably due to viral respiratory illness.
--- NOTE | 2019-01-04 17:11 | P.PN ---
Subjective Progress Note Date: 01/04/19 01/04/2019: Patient seen and examined. Patient's daughters at bedside and immediately becomes very aggressive and angry when I walk into the room. She states that doctors don't know what they're doing. She states that she is going [facility] else because they're trying to kill her mother. The patient refuses to use nebulized medications. She feels this caused her pneumonia and she almost a few years ago. The patient's daughter states that "the doctors keep trying to give her nebulizers." This is discussed with the patient and her daughter at length. All nebulized medications have been discontinued. The patient will have an oxygen assessment prior to discharge. Antibiotics will be switched to oral. Continue prednisone taper. The patient is complaining of some GI upset and burning in her esophagus. She states the Pepcid isn't helping her. Objective - Vital Signs Vital signs: Vital Signs Temp 98.3 F 01/04/19 07:30 Pulse 99 01/04/19 07:30 Resp 16 01/04/19 01:00 BP 123/73 01/04/19 07:30 Pulse Ox 95 01/04/19 07:30 Intake & Output 01/03/19 01/04/19 01/04/19 18:59 06:59 18:59 Intake Total 1010 540 600 Balance 1010 540 600 Intake: Oral 1010 540 600 Other: Voiding Method Toilet Toilet Toilet # Voids 1 1 1 - Exam Gen.: Patient is alert and oriented 3, no acute distress Cardiovascular: Regular rate and rhythm, S1/S2 Lungs: Diminished breath sounds bilaterally no wheezes rales or rhonchi Abdomen: Soft nontender nondistended positive bowel sounds Extremities: No edema - Labs CBC & Chem 7: 01/02/19 17:01 01/02/19 17:01 Labs: Microbiology - Last 24 Hours (Table) 01/02/19 17:26 Urine Culture - Final Urine,Voided 01/03/19 15:00 Group A Strep Throat Culture - Preliminary Throat 01/02/19 17:01 Blood Culture - Preliminary Blood No Growth after 24 hours Assessment and Plan Assessment: Acute exacerbation of COPD and emphysema, severe, FEV1 41% of predicted Bronchospasm Influenza A Tracheobronchitis Pharyngitis Bibasilar atelectasis Unchanged Multiple pulmonary nodules, left lower lobe measuring 7.1 mm an 8.2 mm, right lower lobe 7.5 mm History of tobacco abuse, in remission Chronic migraines O2 to maintain saturation greater than or equal to 88%, currently on RA Continued tobacco cessation strongly recommended She will need repeat chest CT as an outpatient in 12 months ABX: change to Doxycycline Prednisone taper Robitussin Rapid strep test negative Cepacol lozenges PRN IS and pulmonary hygiene GI and DVT prophylaxis Patient adamantly declines inhalers/nebulizer despite education Ambulatory pulse ox for home O2 eval prior to discharge GI cocktail x 1
[2019-01-04] MEDS ORDERED: MAG HYDROX/AL HYDROX/SIMETH 30 ML, HYOSCYAMINE ELIXIR 10 ML, CIMETIDINE HCL 300 MG, LID... PO ONE ×4 (17:45)
[2019-01-04] MEDS: DOXYCYCLINE 100 MG CAP PO SCH (20:49)
[2019-01-05] MEDS: HEPARIN SODIUM,PORCINE 5,000 UNIT/ML 1 ML VIAL SQ SCH ×4 (00:51→23:17)
[2019-01-05] MEDS: OSELTAMIVIR 75 MG CAP PO SCH ×2 (07:46→21:10)
[2019-01-05] MEDS: DOXYCYCLINE 100 MG CAP PO SCH ×2 (07:46→21:10)
[2019-01-05] MEDS: predniSONE 20 MG TAB PO SCH (07:46)
[2019-01-05] MEDS: FAMOTIDINE 20 MG TAB PO SCH ×2 (07:46→21:10)
[2019-01-05] MEDS: ACETAMINOPHEN TAB 325 MG TAB PO PRN (07:53)
--- NOTE | 2019-01-05 10:06 | P.PN ---
Subjective Progress Note Date: 01/05/19 01/05/2019: Patient seen and examined. Patient is currently on room air. She does state that when she walked in the hallway her oxygen went down to 86%. The patient states she is otherwise ready to go home. She states she does have some intermittent fever still. Objective - Vital Signs Vital signs: Vital Signs Temp 97.8 F 01/05/19 07:30 Pulse 90 01/05/19 07:30 Resp 20 01/05/19 07:30 BP 105/72 01/05/19 07:30 Pulse Ox 92 L 01/05/19 07:30 Intake & Output 01/04/19 01/05/19 01/05/19 18:59 06:59 18:59 Intake Total 600 Balance 600 Intake: Oral 600 Other: Voiding Method Toilet Toilet # Voids 1 - Exam Gen.: Patient is alert and oriented 3, no acute distress Cardiovascular: Regular rate and rhythm, S1/S2 Lungs: Diminished breath sounds bilaterally no wheezes rales or rhonchi Abdomen: Soft nontender nondistended positive bowel sounds Extremities: No edema - Labs CBC & Chem 7: 01/02/19 17:01 01/02/19 17:01 Labs: Microbiology - Last 24 Hours (Table) 01/02/19 17:01 Blood Culture - Preliminary Blood No Growth after 48 hours Assessment and Plan Assessment: Acute exacerbation of COPD and emphysema, severe, FEV1 41% of predicted Bronchospasm Influenza A Tracheobronchitis Pharyngitis Bibasilar atelectasis Unchanged Multiple pulmonary nodules, left lower lobe measuring 7.1 mm an 8.2 mm, right lower lobe 7.5 mm History of tobacco abuse, in remission Chronic migraines O2 to maintain saturation greater than or equal to 88%, currently on RA Continued tobacco cessation strongly recommended She will need repeat chest CT as an outpatient in 12 months ABX: change to Doxycycline Prednisone taper Robitussin Rapid strep test negative Cepacol lozenges PRN IS and pulmonary hygiene GI and DVT prophylaxis Patient adamantly declines inhalers/nebulizer despite education Rx for O2 placed on patient chart OK to DC from pulmonary standpoint. Follow up 2-3 days.
[2019-01-05] MEDS: PROMETHAZ-COD 6.25-10 MG/5 ML 5 ML CUP PO PRN ×2 (15:25→23:16)
--- NOTE | 2019-01-05 17:00 | P.PN ---
Subjective 58-year-old the female admitted for COPD exacerbation and agreed the PCR is positive for influenza A patient was started on Tamiflu there is no evidence pneumonia will discontinue Rocephin and azithromycin patient was started on oxygen for possible secondary bacterial bronchitis Patient is still had low-grade fevers still has body aches. Completing of tiredness. Patient will be continued on IV fluids . Continue with prednisone. She has fever of 99.7 yesterday home oxygen evaluation, dropped with oxygen down to 83%. She will need oxygen therapy upon discharge. Objective - Vital Signs Vital signs: Vital Signs Temp 97.8 F 01/05/19 14:30 Pulse 103 H 01/05/19 14:36 Resp 20 01/05/19 14:36 BP 143/76 01/05/19 14:30 Pulse Ox 92 L 01/05/19 07:30 Intake & Output 01/04/19 01/05/19 01/05/19 18:59 06:59 18:59 Intake Total 600 Output Total 400 Balance 600 -400 Intake: Oral 600 Output: Urine 400 Other: Voiding Method Toilet Toilet # Voids 1 - Exam GENERAL: The patient is alert and oriented x3, not in any acute distress. Well developed, well nourished. HEENT: Pupils are round and equally reacting to light. EOMI. No scleral icterus. No conjunctival pallor. Normocephalic, atraumatic. No pharyngeal erythema. No thyromegaly. CARDIOVASCULAR: S1 and S2 present. No murmurs, rubs, or gallops. PULMONARY: Chest is clear to auscultation, no wheezing or crackles. ABDOMEN: Soft, nontender, nondistended, normoactive bowel sounds. No palpable organomegaly. MUSCULOSKELETAL: No joint swelling or deformity. EXTREMITIES: No cyanosis, clubbing, or pedal edema. NEUROLOGICAL: Gross neurological examination did not reveal any focal deficits. SKIN: No rashes. - Labs CBC & Chem 7: 01/02/19 17:01 01/02/19 17:01 Labs: Microbiology - Last 24 Hours (Table) 01/03/19 15:00 Group A Strep Throat Culture - Final Throat 01/02/19 17:01 Blood Culture - Preliminary Blood No Growth after 48 hours Assessment and Plan Assessment: -COPD exacerbation appears to be mild p -Acute influenza A leading to fever and may be secondary bacterial bronchitis -Fibromyalgia -Gastroesophageal reflux disease due to systemic steroids patient will be started on GI prophylaxis -Fever and the systemic inflammatory response syndrome probably due to viral respiratory illness. Discharge in 24-48 hours
[2019-01-06] MEDS: HEPARIN SODIUM,PORCINE 5,000 UNIT/ML 1 ML VIAL SQ SCH ×2 (09:06→15:21)
[2019-01-06] MEDS: predniSONE 20 MG TAB PO SCH (09:06)
[2019-01-06] MEDS: OSELTAMIVIR 75 MG CAP PO SCH (09:06)
[2019-01-06] MEDS: FAMOTIDINE 20 MG TAB PO SCH (09:06)
[2019-01-06] MEDS: DOXYCYCLINE 100 MG CAP PO SCH (09:06)
[2019-01-06] MEDS: PROMETHAZ-COD 6.25-10 MG/5 ML 5 ML CUP PO PRN ×2 (09:13→15:18)
[2019-01-06] MEDS: ACETAMINOPHEN TAB 325 MG TAB PO PRN (10:36)
[2019-01-06 16:13] VITALS: RESP 14; TEMP 98
[2019-01-06 16:47] VITALS: BP 106/70; PULSE 80
== END 2019-01-06 16:15 | disposition home or self-care (01) | DRG 191 ==
LOC: EC 16:34 → 4SSUR 19:31 → OBSVTOIN 01-03 09:48
PROVIDERS: ADMIT Internal Medicine; ATTEND Internal Medicine
DX: J44.0 Chronic obstructive pulmonary disease with (acute) lower respiratory infection (principal); J98.11 Atelectasis; J10.1 Influenza due to other identified influenza virus with other respiratory manifestations; J44.1 Chronic obstructive pulmonary disease with (acute) exacerbation; K21.9 Gastro-esophageal reflux disease without esophagitis; M06.9 Rheumatoid arthritis, unspecified; G43.909 Migraine, unspecified, not intractable, without status migrainosus; M79.7 Fibromyalgia; Z80.8 Family history of malignant neoplasm of other organs or systems; Z82.49 Family history of ischemic heart disease and other diseases of the circulatory system; Z87.891 Personal history of nicotine dependence; Z90.710 Acquired absence of both cervix and uterus; Z99.81 Dependence on supplemental oxygen; R91.8 Other nonspecific abnormal finding of lung field; T38.0X5A Adverse effect of glucocorticoids and synthetic analogues, initial encounter; Z86.79 Personal history of other diseases of the circulatory system; Z88.5 Allergy status to narcotic agent; Z80.0 Family history of malignant neoplasm of digestive organs
CPT/HCPCS: 36415; 71046; 71275; 80053; 81001; 83605; 85025; 85610; 85730; 87040; 87081; 87086; 87430; 87502; 93005; 96374; 96375; 99291

== ENCOUNTER 2019-01-10 15:17 | Inpatient (IN) | payer OTHER ==
[2019-01-10] MEDS ORDERED: SODIUM CHLORIDE 0.9% 1,000 ML IV STA (15:42)
[2019-01-10] MEDS ORDERED: methylPREDNISolone SOD SUCCI 125 MG/2 ML VIAL IV STA (15:47)
--- NOTE | 2019-01-10 15:53 | ED ---
SOB HPI - General Chief Complaint: Shortness of Breath Stated Complaint: SOB Time Seen by Provider: 01/10/19 15:42 Source: patient, RN notes reviewed Limitations: no limitations - History of Present Illness Initial Comments: 58-year-old female presents emergency Department chief complaint shortness of breath. Patient was discharged on Monday for influenza, COPD exacerbation. Patient states that she cannot take steroids as directed. She states that lasted she took steroids outpatient made her heart race. Patient refuses breathing treatments. She states that it makes her worse. Patient does not do any treatment or inhalers at home. Patient denies any current chest pain states that she does have some chest tightness. No fever or chills. 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 Patient states that she is a nonsmoker at this time. - Related Data Home Medications Medication Instructions Recorded Confirmed guaiFENesin SYRUP 100MG/5ML 200 mg PO Q6HR PRN 01/10/19 01/10/19 [Robitussin] predniSONE See Taper PO DIRECTED 01/10/19 01/10/19 Previous Rx's Medication Instructions Recorded Acetaminophen Tab [Tylenol] 650 mg PO Q6HR PRN tab 01/06/19 Doxycycline [Vibramycin] 100 mg PO BID #8 cap 01/06/19 Famotidine [Pepcid] 20 mg PO BID #60 tab 01/06/19 Oseltamivir [Tamiflu] 75 mg PO Q12HR #5 cap 01/06/19 Allergies Allergy/AdvReac Type Severity Reaction Status Date / Time meperidine [From Demerol] Allergy Rash/Hives/ Verified 01/10/19 16:21 Swelling Review of Systems ROS Statement: Those systems with pertinent positive or pertinent negative responses have been documented in the HPI. ROS Other: All systems not noted in ROS Statement are negative. Past Medical History Past Medical History: COPD, Fibromyalgia, Rheumatoid Arthritis (RA) Additional Past Medical History / Comment(s): FORGETFULLNESS History of Any Multi-Drug Resistant Organisms: None Reported Past Surgical History: Hernia Repair, Hysterectomy Additional Past Surgical History / Comment(s): brain aneurysm surgery "STATED HAS 12 COILS/STENTS". HEMORRHOIDECTOMY, RT INGUINAL HERNIA, D&C Past Anesthesia/Blood Transfusion Reactions: No Reported Reaction Past Psychological History: No Psychological Hx Reported Smoking Status: Former smoker Past Alcohol Use History: None Reported Past Drug Use History: None Reported - Past Family History Father Family Medical History: Cancer Additional Family Medical History / Comment(s): STOMACH/THROAT CANCER Mother Family Medical History: Myocardial Infarction ([place]) General Exam Limitations: no limitations General appearance: alert, in no apparent distress Head exam: Present: atraumatic, normocephalic, normal inspection Eye exam: Present: normal appearance, PERRL, EOMI. Absent: scleral icterus, conjunctival injection, periorbital swelling ENT exam: Present: normal exam, normal oropharynx, mucous membranes moist, TM's normal bilaterally Neck exam: Present: normal inspection, full ROM. Absent: tenderness, meningismus, lymphadenopathy Respiratory exam: Present: wheezes, decreased breath sounds. Absent: normal lung sounds bilaterally, respiratory distress, rales, rhonchi, stridor Cardiovascular Exam: Present: normal rhythm, tachycardia, normal heart sounds. Absent: systolic murmur, diastolic murmur, rubs, gallop, clicks GI/Abdominal exam: Present: soft, normal bowel sounds. Absent: distended, tenderness, guarding, rebound, rigid Skin exam: Present: warm, dry, intact, normal color. Absent: rash Course Vital Signs 01/10/19 15:35 Temperature 98 F Pulse Rate 107 H Respiratory 24 Rate Blood Pressure 132/77 O2 Sat by Pulse 95 Oximetry - Reevaluation(s) Reevaluation #1: 01/10/19 16:40 Patient refuses albuterol and Atrovent Medical Decision Making - Medical Decision Making 58 show female presented for shortness of breath, not feeling well. Chest x-ray shows evidence of pneumonia which is new from prior. Patient will be admitted for IV steroids and antibiotics and further evaluation. She refuses updrafts. - Lab Data Result diagrams: 01/10/19 16:11 Lab Results 01/10/19 Range/Units 16:11 WBC 8.8 (3.8-10.6) k/uL RBC 4.90 (3.80-5.40) m/uL Hgb 13.6 (11.4-16.0) gm/dL Hct 42.7 (34.0-46.0) % MCV 87.3 (80.0-100.0) fL MCH 27.9 (25.0-35.0) pg MCHC 32.0 (31.0-37.0) g/dL RDW 14.0 (11.5-15.5) % Plt Count 284 (150-450) k/uL Neutrophils % 63 % Lymphocytes % 26 % Monocytes % 7 % Eosinophils % 2 % Basophils % 1 % Neutrophils # 5.6 (1.3-7.7) k/uL Lymphocytes # 2.3 (1.0-4.8) k/uL Monocytes # 0.6 (0-1.0) k/uL Eosinophils # 0.1 (0-0.7) k/uL Basophils # 0.1 (0-0.2) k/uL - EKG Data EKG Comments: EKG performed at 16:38 sinus tachycardia with nonspecific T-wave abnormality, rate of 101 DC 148 QRS 68 QT/QTC 306/396 Disposition Clinical Impression: Pneumonia, COPD exacerbation Disposition: ADMITTED IP TO THIS HOSP Condition: Fair Referrals: Rj Gavin MD [Primary Care Provider] - 1-2 days
[2019-01-10 16:22] LABS: Basophils # (A) 0.1 k/uL (0-0.2); Basophils % (A) 1 %; Eosinophils # (A) 0.1 k/uL (0-0.7); Eosinophils % (A) 2 %; HCT 42.7 % (34.0-46.0); HGB 13.6 gm/dL (11.4-16.0); Lymphocytes # (A) 2.3 k/uL (1.0-4.8); Lymphocytes % (A) 26 %; MCH 27.9 pg (25.0-35.0); MCV 87.3 fL (80.0-100.0); Mean Platelet Volume 6.9; Monocytes # (A) 0.6 k/uL (0-1.0); Monocytes % (A) 7 %; Neutrophils # (A) 5.6 k/uL (1.3-7.7); Neutrophils % (A) 63 %; Platelet Count 284 k/uL (150-450); WBC 8.8 k/uL (3.8-10.6)
--- NOTE | 2019-01-10 16:29 | XR ---
EXAMINATION TYPE: XR chest 2V DATE OF EXAM: 01/10/2019 COMPARISON: 01/02/2019 HISTORY: 58-year-old female shortness of breath, difficulty breathing TECHNIQUE: PA and lateral views FINDINGS: Heart normal size. Aorta and pulmonary vasculature within normal limits. Relative upper lung lucencie s. Patchy bibasilar densities are redemonstrated. Hyperinflation with flattening of the hemidiaphragm s. Right middle lobe focal opacity. IMPRESSION: COPD and chronic changes at the lung bases but with new right middle lobe airspace disease suspicious for pneumonia. Follow-up after treatment to ensure clearance.
[2019-01-10] MEDS ORDERED: PNEUMONIA PROTOCOL UTILIZED 1 EACH MISC PO PRN (16:42)
[2019-01-10] MEDS ORDERED: PIPERACILLIN-TAZOBACTAM 3.375 GM in SODIUM CHLORIDE 0.9% 100 ML IVPB STA (16:42)
[2019-01-10] MEDS ORDERED: LEVOFLOXACIN 750MG-D5W PMX 750 MG in DEXTROSE/WATER 1 150ML.BAG IVPB STA (16:42)
[2019-01-10 16:58] LABS: ALT 69 U/L (9-52); AST 35 U/L (14-36); Albumin 3.9 g/dL (3.5-5.0); Alkaline Phosphatase 79 U/L (38-126); Anion Gap 10 mmol/L; Blood Urea Nitrogen 12 mg/dL (7-17); Calcium 9.3 mg/dL (8.4-10.2); Carbon Dioxide 23 mmol/L (22-30); Chloride 109 mmol/L (98-107); Glucose 99 mg/dL (74-99); Magnesium 1.9 mg/dL (1.6-2.3); Potassium 4.3 mmol/L (3.5-5.1); Sodium 142 mmol/L (137-145)
[2019-01-10 19:41] VITALS: BMI 27.1
[2019-01-10] MEDS ORDERED: ALBUTEROL NEBULIZED 2.5 MG/3 ML INHALATION PRN (20:33)
[2019-01-10 20:44] LABS: Glucose,Whole Blood 116 mg/dL (75-99)
[2019-01-10] MEDS: INSULIN ASPART (NovoLOG) 100 UNIT/ML VIAL SQ SCH (22:00)
[2019-01-10] MEDS: OSELTAMIVIR 75 MG CAP PO SCH (22:01)
[2019-01-10] MEDS: FAMOTIDINE 20 MG TAB PO SCH (22:01)
[2019-01-10] MEDS: guaiFENesin 600 MG TABLET.ER PO SCH (22:01)
[2019-01-10] MEDS: ALPRAZolam 0.25 MG TAB PO PRN (22:01)
[2019-01-10] MEDS: methylPREDNISolone SOD SUCCI 125 MG/2 ML VIAL IV SCH (23:47)
[2019-01-11] MEDS: PIPERACILLIN-TAZOBACTAM 3.375 GM in SODIUM CHLORIDE 0.9% 100 ML IVPB SCH ×3 (02:12→15:59)
[2019-01-11] MEDS: methylPREDNISolone SOD SUCCI 125 MG/2 ML VIAL IV SCH ×3 (05:43→17:54)
[2019-01-11 07:09] LABS: Glucose,Whole Blood 127 mg/dL (75-99)
[2019-01-11] MEDS: INSULIN ASPART (NovoLOG) 100 UNIT/ML VIAL SQ SCH ×4 (07:19→20:32)
--- NOTE | 2019-01-11 07:49 | HP ---
HISTORY AND PHYSICAL DATE OF SERVICE: 01/10/2019 CHIEF COMPLAINTS: Shortness of breath, cough and sputum. HISTORY OF PRESENT ILLNESS: This 58-year-old woman with a past medical history of multiple medical problems including history of COPD, fibromyalgia, pneumonia, history of rheumatoid arthritis, history of forgetfulness, being followed by Dr. Gavin in the outpatient setting was recently admitted to [facility] with features of COPD, exacerbation as well as influenza A and fibromyalgia. The patient was discharged and subsequently patient was taking the Tamiflu, but because of increasing shortness of breath and cough and sputum patient came to [facility] and was admitted for further evaluation and treatment. There is no history of fever rigors. No history of headache, loss of consciousness, seizures. PAST MEDICAL HISTORY: History of COPD, fibromyalgia, pneumonia, history rheumatoid arthritis, forgetfulness. MEDICATIONS: Medications prior to admission include home medications are: 1. Prednisone taper. 2. Robitussin 200 mg q.6. 3. Tamiflu 75 mg p.o. b.i.d. 4. Pepcid 20 mg b.i.d. 5. Vibramycin 100 mg b.i.d. 6. Tylenol 650 q.6 p.r.n. ALLERGIES: Allergies are DEMEROL. FAMILY HISTORY: History of stomach cancer in the family. SOCIAL HISTORY: Previous history of smoking. No history of current smoking or alcohol intake. REVIEW OF SYSTEMS: ENT: No diminished hearing or diminished vision. CARDIOVASCULAR SYSTEM: No angina. RESPIRATORY SYSTEM: As mentioned earlier. GI: No nausea. : No dysuria. NERVOUS SYSTEM: No numbness or weakness. ALLERGY/IMMUNOLOGY: No asthma. MUSCULOSKELETAL: As mentioned earlier. HEMATOLOGY/ONCOLOGY: No history of anemia. ENDOCRINE: As mentioned earlier. CONSTITUTIONAL: As mentioned earlier. DERMATOLOGY: Negative. RHEUMATOLOGY: Negative. PSYCHIATRY: As mentioned earlier. PHYSICAL EXAMINATION: Patient is alert, oriented x3. Pulse 87, blood pressure 145/79, respiration 17, temperature 97.9, pulse ox 95% on 4 L. HEENT: Conjunctivae normal. Oral mucosa moist. Neck is no jugular venous distention or carotid bruit. No lymph node enlargement. CARDIOVASCULAR: S1, S2 muffled. No S3, no S4. RESPIRATORY: Breath sounds diminished at the bases. A few scattered rhonchi and crackles. ABDOMEN: Soft, nontender. No mass palpable. LEGS: No edema. No swelling. NERVOUS SYSTEM: Higher functions as mentioned earlier. Moves all 4 limbs. No focal motor deficit. LYMPHATICS: No lymphadenopathy of the neck, axillae or groin. SKIN: No ulcer, rash or bleeding. JOINTS: No active deforming arthropathy. LABS: WBC 8.8, hemoglobin 13.6. ALT 69. Chest x-ray which was personally reviewed, showed possible right middle lobe pneumonia. ASSESSMENT: 1. Chronic obstructive pulmonary disease acute exacerbation with possible acute purulent tracheobronchitis or bronchopneumonia. 2. Bronchopneumonia with right middle lobe pneumonia. 3. Recent influenza A. 4. Fibromyalgia. 5. History of rheumatoid arthritis. 6. History of hernia repair. 7. History of anxiety. RECOMMENDATIONS AND DISCUSSION: In this 58-year-old woman who presented with multiple complex medical issues, we will monitor the patient closely. Continue the current medications, continue symptomatic treatment. Otherwise we will initiate Zosyn, IV steroids, Tamiflu. I would also recommend consult pulmonology Dr. Vanessa Christianson and continue to monitor. The prognosis guarded because of multiple complex medical issues. Further recommendations to follow. A copy of dictation forwarded to Dr. Gavin who is the primary physician. MMODL / IJN: [id number] /
[2019-01-11] MEDS: guaiFENesin 600 MG TABLET.ER PO SCH ×2 (08:28→21:05)
[2019-01-11] MEDS: FAMOTIDINE 20 MG TAB PO SCH ×2 (08:28→21:06)
[2019-01-11] MEDS: OSELTAMIVIR 75 MG CAP PO SCH ×2 (08:28→21:10)
[2019-01-11] MEDS: ALPRAZolam 0.25 MG TAB PO PRN (08:33)
--- NOTE | 2019-01-11 11:12 | XR ---
EXAMINATION TYPE: XR chest 2V DATE OF EXAM: 01/11/2019 COMPARISON: 01/10/2019 TECHNIQUE: PA and lateral views submitted. HISTORY: Cough possible pneumonia FINDINGS: Hyperinflation suggestive COPD and there is bilateral lower lobe and right middle lobe infiltrate. He art size stable. No sizable pneumothorax. No overt failure. IMPRESSION: 1. Bilateral infiltrate is stable superimposed on a background of COPD. Correlate for pneumonia.
[2019-01-11 11:49] LABS: Glucose,Whole Blood 150 mg/dL (75-99)
[2019-01-11] MEDS ORDERED: ALPRAZolam 0.25 MG TAB PO PRN (12:01)
--- NOTE | 2019-01-11 16:08 | P.CNPUL ---
History of Present Illness Consult date: 01/11/19 Reason for consult: dyspnea, COPD, hypoxemia, pneumonia Chief complaint: shortness of breath History of present illness: This is a 58-year-old female who presented emergency department complaining of shortness of breath. Patient was discharged on 01/06/2019. Patient was admitted with influenza pneumonia and COPD exacerbation. The patient states she did not have fevers at home but became very short of breath with minimal exertion. She also is complaining of chest tightness. The patient states she is having worsening sputum production. She had 3 more doses of Tamiflu to take at home. She declines to use any nebulizer treatments or inhalers. She believes they almost killed her in a previous admission. The patient's chest x- rays reviewed and shows bilateral basilar infiltrates, COPD. When compared to chest x-ray from last admission it is unchanged. This is discussed with the patient and her daughter. They are aware it could take several weeks for the chest x-ray to improve. Review of Systems All systems: negative Past Medical History Past Medical History: COPD, Fibromyalgia, Pneumonia, Rheumatoid Arthritis (RA) Additional Past Medical History / Comment(s): FORGETFULLNESS History of Any Multi-Drug Resistant Organisms: None Reported Past Surgical History: Hernia Repair, Hysterectomy Additional Past Surgical History / Comment(s): brain aneurysm surgery "STATED HAS 12 COILS/STENTS". HEMORRHOIDECTOMY, RT INGUINAL HERNIA, D&C Past Anesthesia/Blood Transfusion Reactions: No Reported Reaction Past Psychological History: Anxiety Smoking Status: Former smoker Past Alcohol Use History: None Reported Additional Past Alcohol Use History / Comment(s): SMOKED FOR 40 YEARS, QUIT JANUARY [address] DOWN FROM 3 PPD TO 1/2 PPD THEN QUIT. Past Drug Use History: None Reported - Past Family History Father Family Medical History: Cancer Additional Family Medical History / Comment(s): STOMACH/THROAT CANCER Mother Family Medical History: Myocardial Infarction ([place]) Medications and Allergies Home Medications Medication Instructions Recorded Confirmed Type RX: Acetaminophen Tab [Tylenol] 650 mg PO Q6HR PRN tab 01/06/19 01/10/19 Rx RX: Doxycycline [Vibramycin] 100 mg PO BID #8 cap 01/06/19 01/10/19 Rx RX: Famotidine [Pepcid] 20 mg PO BID #60 tab 01/06/19 01/10/19 Rx RX: Oseltamivir [Tamiflu] 75 mg PO Q12HR #5 cap 01/06/19 01/10/19 Rx RX: predniSONE See Taper PO DIRECTED 01/10/19 01/10/19 History guaiFENesin SYRUP 100MG/5ML 200 mg PO Q6HR PRN 01/10/19 01/10/19 History [Robitussin] Allergies Allergy/AdvReac Type Severity Reaction Status Date / Time meperidine [From Demerol] Allergy Rash/Hives/ Verified 01/10/19 16:21 Swelling Physical Exam Osteopathic Statement: *. No significant issues noted on an osteopathic structural exam other than those noted in the History and Physical/Consult. Vitals: Vital Signs Temp Pulse Pulse Pulse Resp BP BP 01/11/19 15:15 16 01/11/19 15:12 97.9 F 95 16 132/84 01/11/19 05:00 97.7 F 83 20 130/78 01/11/19 00:00 94 20 01/10/19 21:00 97.9 F 87 17 145/79 01/10/19 18:29 98.5 F 99 18 144/79 01/10/19 17:24 99.6 F 104 H 18 135/95 01/10/19 16:30 104 H 20 132/87 Pulse Ox 01/11/19 15:15 01/11/19 15:12 96 01/11/19 05:00 92 L 01/11/19 00:00 01/10/19 21:00 95 01/10/19 18:29 96 01/10/19 17:24 96 01/10/19 16:30 96 Intake and Output 01/11/19 01/11/19 01/11/19 06:59 14:59 22:59 Intake Total 100 150 Balance 100 150 Intake: Intake, IV Titration 100 150 Amount Piperacillin-Tazobactam 3 100 150 .375 gm In Sodium Chloride 0.9% 100 ml @ 25 mls/hr IVPB Q8HR [facility] Rx# :[id number] Other: Voiding Method Bedside Commode # Voids 1 Gen.: Patient is alert and oriented 3, no acute distress Cardiovascular: Regular rate and rhythm, S1/S2 Lungs: Diminished breath sounds bilaterally with expiratory wheezing and pro longed expiration Abdomen: Soft nontender nondistended positive bowel sounds Extremities: No edema Results - Laboratory Findings CBC and BMP: 01/10/19 16:11 01/10/19 16:11 Abnormal lab findings: Abnormal Labs 01/10/19 01/10/19 01/11/19 16:11 20:22 07:07 Chloride 109 H Creatinine 0.45 L POC Glucose (mg/dL) 116 H 127 H ALT 69 H 01/11/19 11:48 Chloride Creatinine POC Glucose (mg/dL) 150 H ALT - Diagnostic Findings Chest x-ray: report reviewed, image reviewed Assessment and Plan Assessment: Acute exacerbation of COPD and emphysema, severe, FEV1 41% of predicted Bronchospasm Recent Influenza A Bibasilar pneumonia Pharyngitis Bibasilar atelectasis Unchanged Multiple pulmonary nodules, left lower lobe measuring 7.1 mm an 8.2 mm, right lower lobe 7.5 mm History of tobacco abuse, in remission Chronic migraines O2 to maintain saturation greater than or equal to 88%, currently on RA Continued tobacco cessation strongly recommended She will need repeat chest CT as an outpatient in 12 months ABX: Levaquin, Zosyn Steroid taper IS and pulmonary hygiene GI and DVT prophylaxis Patient adamantly declines inhalers/nebulizer despite education Patient requesting Xanax, states she gets very anxious when she can't breathe Mucinex Complete course of Tamiflu Sputum culture, Legionella, mycoplasma Outpatient pulmonary rehab Thank you for this consultation we'll continue to follow along
[2019-01-11 17:09] LABS: Glucose,Whole Blood 121 mg/dL (75-99)
[2019-01-11] MEDS: ALPRAZolam 0.5 MG TAB PO PRN (19:48)
[2019-01-11 20:15] LABS: Glucose,Whole Blood 174 mg/dL (75-99)
--- NOTE | 2019-01-11 20:59 | PN ---
PROGRESS NOTE DATE OF SERVICE: 01/11/2019 This 58-year-old woman who was admitted with COPD acute exacerbation with possible acute purulent tracheobronchitis or bronchopneumonia is being closely monitored at this time. Patient has influenza A. patient is also being seen by pulmonology also. The patient had recent influenza A. the current influenza is negative at this time. No chest pain. No palpitations. No fever. EXAM: Alert and oriented times three. Pulse is 95, blood pressure 130/84, respirations 16, temperature 97.9, pulse ox 98% on 4 L. HEENT is conjunctivae normal. Oral mucosa moist. CARDIOVASCULAR: S1, S2 muffled. Respirations: Breath sounds diminished in the bases. Bilateral scattered rhonchi and crackles. Abdomen is soft, nontender. Legs: No edema. No swelling. Central nervous system: No focal deficits. LABS: ALT 69, glucose 121. The chest x-ray done today which was reviewed personally by me showed possibly bilateral pneumonia and possibly right middle lobe pneumonia also. PAST MEDICAL HISTORY: Reviewed. REVIEW OF SYSTEMS: CARDIOVASCULAR: No angina or palpitations. RESPIRATORY: As mentioned earlier. GI: As mentioned earlier. : No dysuria. CENTRAL NERVOUS SYSTEM: No focal deficits. CURRENT MEDICATIONS: Reviewed and include: 1. Ventolin 2.5 q.i.d. p.r.n. 2. Xanax. 3. Pepcid. 4. Mucinex. 5. NovoLog scale. 6. Levaquin 750 p.o. q.h.s. 7. Solu-Medrol 60 IV q.6h. 8. Singular. 9. Tamiflu. 10.Zosyn 3.5 IV q.8. ASSESSMENT: 1. Chronic obstructive pulmonary disease acute exacerbation with possible bilateral pneumonia possibly gram-negative. 2. Possible right middle lobe pneumonia. 3. Recent influenza A. Current influenza test negative. 4. Fibromyalgia. 5. History rheumatoid arthritis. 6. History of hernia repair. 7. History of anxiety. RECOMMENDATIONS AND DISCUSSION: I recommend to continue current medications, medical management, and symptomatic treatment. Continue with monitoring. Continue with IV antibiotics. I would also recommend continue with the steroids and continue the rest of medications. Closely follow with Pulmonary. Guarded prognosis because of multiple complex medical issues. Further recommendations to follow. MMODL / IJN: [id number] /
[2019-01-11] MEDS ORDERED: LEVOFLOXACIN 750MG-D5W PMX 750 MG in DEXTROSE/WATER 1 150ML.BAG IVPB SCH (21:00)
[2019-01-11] MEDS: LEVOFLOXACIN 750 MG TAB PO SCH (21:05)
[2019-01-11] MEDS: MONTELUKAST 10 MG TAB PO SCH (21:06)
[2019-01-12] MEDS: PIPERACILLIN-TAZOBACTAM 3.375 GM in SODIUM CHLORIDE 0.9% 100 ML IVPB SCH ×4 (00:08→23:54)
[2019-01-12] MEDS: methylPREDNISolone SOD SUCCI 125 MG/2 ML VIAL IV SCH ×5 (00:08→23:54)
--- NOTE | 2019-01-12 02:45 | P.PN ---
Subjective Progress Note Date: 01/12/19 01/12/2019: Patient seen and examined with her daughter at bedside. The patient states she is doing a little bit better but is still very short of breath with minimal exertion. She feels like her wheezing is slightly improving. She is on room air. Objective - Vital Signs Vital signs: Vital Signs Temp 97.6 F 01/11/19 19:03 Pulse 96 01/11/19 19:03 Resp 18 01/11/19 19:31 BP 132/77 01/11/19 19:03 Pulse Ox 96 01/11/19 19:03 Intake & Output 01/11/19 01/11/19 01/12/19 06:59 18:59 06:59 Intake Total 1300 150 Balance 1300 150 Intake: Intake, IV Titration 1300 150 Amount Levofloxacin 750Mg-D5w 100 Pmx 750 mg In Dextrose/ Water 1 150ml.bag @ 100 mls/hr IVPB [facility] Rx#: [id number] Piperacillin-Tazobactam 3 100 .375 gm In Sodium Chloride 0.9% 100 ml @ 25 mls/hr IVPB [facility] Rx# :[id number] Piperacillin-Tazobactam 3 100 150 .375 gm In Sodium Chloride 0.9% 100 ml @ 25 mls/hr IVPB Q8HR JESS[facility] Rx# :[id number] Sodium Chloride 0.9% 1, 1000 000 ml @ 999 mls/hr IV . Q1H1M ST[facility] Rx#:[id number] Other: Voiding Method Bedside Commode Bedside Commode # Voids 1 1 - Exam Gen.: Patient is alert and oriented 3, no acute distress Cardiovascular: Regular rate and rhythm, S1/S2 Lungs: Diminished breath sounds bilaterally with expiratory wheezing and prolonged expiration Abdomen: Soft nontender nondistended positive bowel sounds Extremities: No edema - Labs CBC & Chem 7: 01/10/19 16:11 01/10/19 16:11 Labs: Abnormal Lab Results - Last 24 Hours (Table) 01/11/19 01/11/19 01/11/19 Range/Units 07:07 11:48 17:07 POC Glucose (mg/dL) 127 H 150 H 121 H (75-99) mg/dL 01/11/19 Range/Units 20:14 POC Glucose (mg/dL) 174 H (75-99) mg/dL Microbiology - Last 24 Hours (Table) 01/10/19 17:04 Blood Culture - Preliminary Blood No Growth after 24 hours Assessment and Plan Assessment: Acute exacerbation of COPD and emphysema, severe, FEV1 41% of predicted Bronchospasm Recent Influenza A Bibasilar pneumonia Pharyngitis Bibasilar atelectasis Unchanged Multiple pulmonary nodules, left lower lobe measuring 7.1 mm an 8.2 mm, right lower lobe 7.5 mm History of tobacco abuse, in remission Chronic migraines O2 to maintain saturation greater than or equal to 88%, currently on RA Continued tobacco cessation strongly recommended She will need repeat chest CT as an outpatient in 12 months ABX: Levaquin, Zosyn Steroid taper IS and pulmonary hygiene GI and DVT prophylaxis Patient adamantly declines inhalers/nebulizer despite education Patient requesting Xanax, states she gets very anxious when she can't breathe Mucinex Complete course of Tamiflu Sputum culture, Legionella, mycoplasma Outpatient pulmonary rehab
[2019-01-12] MEDS: ALPRAZolam 0.5 MG TAB PO PRN ×3 (05:00→23:53)
[2019-01-12 06:57] LABS: Glucose,Whole Blood 144 mg/dL (75-99)
[2019-01-12] MEDS: FAMOTIDINE 20 MG TAB PO SCH ×2 (07:50→20:39)
[2019-01-12] MEDS: guaiFENesin 600 MG TABLET.ER PO SCH ×2 (07:50→20:39)
[2019-01-12] MEDS: INSULIN ASPART (NovoLOG) 100 UNIT/ML VIAL SQ SCH ×4 (07:50→21:10)
[2019-01-12 11:22] LABS: Glucose,Whole Blood 193 mg/dL (75-99)
[2019-01-12 12:53] LABS: Basophils % (A) 0 %; Eosinophils # (A) 0.1 k/uL (0-0.7); Eosinophils % (A) 0 %; HCT 38.2 % (34.0-46.0); HGB 12.1 gm/dL (11.4-16.0); Lymphocytes % (A) 6 %; MCH 27.7 pg (25.0-35.0); MCHC 31.7 g/dL (31.0-37.0); MCV 87.5 fL (80.0-100.0); Mean Platelet Volume 7.2; Monocytes # (A) 0.9 k/uL (0-1.0); Monocytes % (A) 6 %; Neutrophils # (A) 13.1 k/uL (1.3-7.7); Neutrophils % (A) 87 %; Platelet Count 394 k/uL (150-450); RBC 4.37 m/uL (3.80-5.40); RDW 13.9 % (11.5-15.5); WBC 15.1 k/uL (3.8-10.6)
[2019-01-12 12:58] LABS: Anion Gap 8 mmol/L; Blood Urea Nitrogen 15 mg/dL (7-17); Calcium 9.3 mg/dL (8.4-10.2); Carbon Dioxide 26 mmol/L (22-30); Chloride 108 mmol/L (98-107); Glucose 140 mg/dL (74-99); Sodium 142 mmol/L (137-145)
[2019-01-12 16:50] LABS: Glucose,Whole Blood 130 mg/dL (75-99)
[2019-01-12] MEDS: MONTELUKAST 10 MG TAB PO SCH (20:39)
[2019-01-12] MEDS: LEVOFLOXACIN 750 MG TAB PO SCH (20:39)
[2019-01-12 21:14] LABS: Glucose,Whole Blood 249 mg/dL (75-99)
--- NOTE | 2019-01-12 23:51 | PN ---
PROGRESS NOTE DATE OF SERVICE: 01/12/2019 This 58-year-old woman was admitted with COPD exacerbation with possible pneumonia; also had the flu. The patient is feeling slightly better. No chest pain. No palpitations. Pulmonary is following the patient closely. EXAM: Alert and oriented x3. Pulse 86, blood pressure 128/80, respiration 18, temperature 97.8, pulse ox 97% on room air. HEENT: Conjunctivae normal. NECK: No JVD. CARDIAC: S1, S2 muffled. RESPIRATORY: Diminished breath sounds at the bases. Bilateral scattered rhonchi. ABDOMEN: Soft, nontender. LEGS: No edema. No swelling. NERVOUS SYSTEM: No focal deficits. LABS: WBC 15.1, hemoglobin 12.1, glucose 140. ASSESSMENT: 1. Chronic obstructive pulmonary disease acute exacerbation with possible bilateral pneumonia, possibly gram-negative. 2. Possible right middle lobe pneumonia. 3. Recent influenza A, current influenza test negative. 4. Fibromyalgia. 5. History of rheumatoid arthritis. 6. History of hernia repair. 7. History of anxiety. RECOMMENDATIONS AND DISCUSSION: Recommend to continue current medications, continue symptomatic treatment. Continue the antibiotics. Continue the rest of medication. Closely follow with pulmonary. Guarded prognosis. Further recommendations to follow. MMODL / IJN: [id number] /
[2019-01-13] MEDS: methylPREDNISolone SOD SUCCI 125 MG/2 ML VIAL IV SCH ×3 (05:12→17:26)
[2019-01-13] MEDS: ALPRAZolam 0.5 MG TAB PO PRN ×3 (07:06→23:23)
[2019-01-13 07:12] LABS: Glucose,Whole Blood 138 mg/dL (75-99)
[2019-01-13] MEDS: guaiFENesin 600 MG TABLET.ER PO SCH ×2 (08:24→20:41)
[2019-01-13] MEDS: FAMOTIDINE 20 MG TAB PO SCH ×2 (08:24→20:41)
[2019-01-13] MEDS: PIPERACILLIN-TAZOBACTAM 3.375 GM in SODIUM CHLORIDE 0.9% 100 ML IVPB SCH ×3 (08:24→23:23)
[2019-01-13] MEDS: INSULIN ASPART (NovoLOG) 100 UNIT/ML VIAL SQ SCH ×4 (08:24→20:41)
[2019-01-13 11:41] LABS: Glucose,Whole Blood 142 mg/dL (75-99)
[2019-01-13 11:50] LABS: Basophils % (A) 0 %; Eosinophils % (A) 0 %; HCT 38.6 % (34.0-46.0); Lymphocytes # (A) 0.7 k/uL (1.0-4.8); Lymphocytes % (A) 6 %; MCH 27.1 pg (25.0-35.0); MCHC 31.2 g/dL (31.0-37.0); MCV 86.9 fL (80.0-100.0); Mean Platelet Volume 6.8; Monocytes # (A) 0.7 k/uL (0-1.0); Monocytes % (A) 6 %; Neutrophils % (A) 87 %; Platelet Count 346 k/uL (150-450); RBC 4.44 m/uL (3.80-5.40); RDW 13.6 % (11.5-15.5); WBC 11.6 k/uL (3.8-10.6)
[2019-01-13 11:57] LABS: Anion Gap 6 mmol/L; Blood Urea Nitrogen 15 mg/dL (7-17); Carbon Dioxide 27 mmol/L (22-30); Chloride 108 mmol/L (98-107); Glucose 132 mg/dL (74-99); Potassium 3.8 mmol/L (3.5-5.1); Sodium 141 mmol/L (137-145)
[2019-01-13 17:20] LABS: Glucose,Whole Blood 130 mg/dL (75-99)
[2019-01-13 20:30] LABS: Glucose,Whole Blood 163 mg/dL (75-99)
--- NOTE | 2019-01-13 20:40 | PN ---
PROGRESS NOTE DATE OF SERVICE: January 13, 2019. She continues to have shortness of breath and is unable to bring up any phlegm. On physical examination, she is lying in bed. Her respiratory rate is 18, pulse of 86, temperature 97.6, O2 saturation on 4 L by nasal cannula is 97%. HEENT is unremarkable. Chest reveals expiratory wheeze. Cardiovascular system is S1, S2. Abdomen is soft. There is no edema. White count is 11.6, hemoglobin of 12, 0 eosinophils. IMPRESSION: 1. Asthma with chronic obstructive pulmonary disease with acute exacerbation. 2. Pneumonia. 3. Recent influenza A. 4. Baseline chronic obstructive pulmonary disease. 5. Multiple pulmonary nodules. Continue prednisone, give her an extra 2 doses of Solu-Medrol, increase her activity level. Depending on how she does we should make further changes to her care. RUBIN / JOESPHN: [id number] /
[2019-01-13] MEDS: LEVOFLOXACIN 750 MG TAB PO SCH (20:41)
[2019-01-13] MEDS: MONTELUKAST 10 MG TAB PO SCH (20:41)
--- NOTE | 2019-01-13 21:30 | PN ---
PROGRESS NOTE DATE OF SERVICE: 01/13/2019 This 58-year-old woman was admitted with COPD exacerbation also had bilateral pneumonia, possibly gram-negative. The patient recently had influenza A. right middle lobe pneumonia suspected. Patient is complaining of shortness of breath and sputum. Pulmonary is following the patient closely. No chest pain. No palpitations. No fever. EXAM: Alert and oriented times three. Pulse 73, blood pressure 133/80, respiration 18, temperature 97.2, pulse ox 97% on 4 L. HEENT is conjunctivae normal. NECK: No jugular venous distention. CARDIOVASCULAR: S1, S2. Respirations: Breath sounds diminished in the bases. A few scattered rhonchi and crackles. Abdomen is soft, nontender. Legs are no edema, no swelling. LABS: WBC 11.2, hemoglobin is 12. ASSESSMENT: 1. Chronic obstructive pulmonary disease acute exacerbation with possible bilateral pneumonia possibly gram-negative with right middle lobe pneumonia, prominently. 2. Recent influenza A, current influenza test negative. 3. Fibromyalgia. 4. History of rheumatoid arthritis. 5. History of hernia repair. 6. History of anxiety. RECOMMENDATIONS AND DISCUSSION: Recommend to continue current medications, continue with monitoring, management and symptomatic treatment. Otherwise, at this time, continue with bronchodilators. We will taper the steroids and closely follow with pulmonary. Guarded prognosis. Further recommendations to follow. . MMODL / IJN: [id number] /
[2019-01-13] MEDS: methylPREDNISolone SOD SUCCI 40 MG/ML 1 ML VIAL IV SCH (23:23)
[2019-01-14 05:13] LABS: Mycoplasma IgM Antibody 0.27 INDEX (<=0.90)
[2019-01-14] MEDS: ALPRAZolam 0.5 MG TAB PO PRN (06:23)
[2019-01-14 07:29] LABS: Glucose,Whole Blood 135 mg/dL (75-99)
[2019-01-14 07:30] LABS: Basophils % (A) 0 %; Eosinophils % (A) 0 %; HGB 12.4 gm/dL (11.4-16.0); Lymphocytes # (A) 1.2 k/uL (1.0-4.8); Lymphocytes % (A) 11 %; MCH 27.9 pg (25.0-35.0); MCHC 31.7 g/dL (31.0-37.0); MCV 87.9 fL (80.0-100.0); Mean Platelet Volume 7.1; Monocytes # (A) 0.8 k/uL (0-1.0); Monocytes % (A) 7 %; Neutrophils # (A) 8.7 k/uL (1.3-7.7); Neutrophils % (A) 81 %; Platelet Count 376 k/uL (150-450); RBC 4.44 m/uL (3.80-5.40); RDW 13.8 % (11.5-15.5); WBC 10.8 k/uL (3.8-10.6)
[2019-01-14] MEDS: INSULIN ASPART (NovoLOG) 100 UNIT/ML VIAL SQ SCH ×4 (07:43→20:40)
[2019-01-14 07:45] LABS: Anion Gap 5 mmol/L; Blood Urea Nitrogen 17 mg/dL (7-17); Calcium 8.8 mg/dL (8.4-10.2); Carbon Dioxide 29 mmol/L (22-30); Chloride 106 mmol/L (98-107); Glucose 127 mg/dL (74-99); Potassium 3.9 mmol/L (3.5-5.1); Sodium 140 mmol/L (137-145)
[2019-01-14] MEDS: FAMOTIDINE 20 MG TAB PO SCH ×2 (09:59→20:40)
[2019-01-14] MEDS: methylPREDNISolone SOD SUCCI 40 MG/ML 1 ML VIAL IV SCH (09:59)
[2019-01-14] MEDS: PIPERACILLIN-TAZOBACTAM 3.375 GM in SODIUM CHLORIDE 0.9% 100 ML IVPB SCH ×3 (09:59→23:18)
[2019-01-14] MEDS: guaiFENesin 600 MG TABLET.ER PO SCH ×2 (09:59→20:40)
[2019-01-14 11:06] LABS: Glucose,Whole Blood 141 mg/dL (75-99)
[2019-01-14] MEDS: LORazepam 0.5 MG TAB PO PRN ×2 (14:25→22:21)
--- NOTE | 2019-01-14 16:06 | PN ---
PROGRESS NOTE Patient is a 58-year-old female with a history of severe COPD. Patient is seen sitting up in bed, is in a tripod position. Continues to complain of shortness of breath whenever she lies down or with any exertion. Continues to complain that she is unable to bring up any mucus and is anxious about not being able to breathe. PHYSICAL EXAMINATION: The patient is awake and alert. VITAL SIGNS: Temperature is 97.3, heart rate 73, respiratory rate 18, blood pressure 125/74, oxygen saturation 98% on 3 L oxygen via nasal cannula. HEENT: Head is normocephalic, atraumatic. Neck is supple. Trachea is midline. LUNGS: Decreased breath sounds and a prolonged expiratory phase. HEART: S1 and S2 are heard. Not tachycardic. ABDOMEN: Soft. Bowel sounds are positive. EXTREMITIES: No edema. NEUROLOGIC: Patient is awake, alert, anxious. LABS: White count 10.8, hemoglobin 12.4, hematocrit 39.0 with 376,000 platelets. Sodium is 140, potassium 3.9, chloride 106. CO2 is 29. Anion gap is 5. BUN is 17, creatinine 0.64. Glucose is 127, calcium 8.8. No new imaging to review. IMPRESSION: 1. Asthma with chronic obstructive pulmonary disease with acute exacerbation. 2. Possible pneumonia. 3. Recent influenza A. 4. Baseline chronic obstructive pulmonary disease. 5. Multiple pulmonary nodules. PLAN: Continue current medications, which have been reviewed. Will increase patient's Solu- Medrol to 60 q.6 x4 doses to see if we can decrease airway inflammation. Increase activity as tolerated. Continue GI prophylaxis. Patient refuses DVT prophylaxis with subcutaneous heparin. Will follow patient closely with you, making further changes as necessary. MMODL / IJN: [id number] /
[2019-01-14 17:25] LABS: Glucose,Whole Blood 139 mg/dL (75-99)
[2019-01-14] MEDS: methylPREDNISolone SOD SUCCI 125 MG/2 ML VIAL IV SCH ×2 (17:34→23:18)
[2019-01-14] MEDS: LEVOFLOXACIN 750 MG TAB PO SCH (20:40)
[2019-01-14] MEDS: MONTELUKAST 10 MG TAB PO SCH (20:40)
--- NOTE | 2019-01-14 21:45 | PN ---
PROGRESS NOTE DATE OF SERVICE: 01/14/2019 This 58-year-old woman was admitted with COPD acute exacerbation also had bilateral pneumonia. The patient also had a recent influenza possibly. Patient is still complaining of shortness of breath, cough and sputum. Pulmonary is following the patient closely. Past medical history reviewed. PHYSICAL EXAM: Patient is alert, oriented x3. Pulse 73, blood pressure 120/70, respiration 18, temperature 97.2, pulse ox 98% on 3 L. HEENT is conjunctivae normal. Neck is no jugular venous distention. CARDIOVASCULAR: S1, S2 muffled. RESPIRATORY: Breath sounds diminished in the bases. Bilateral scattered rhonchi and crackles. Abdomen is soft, nontender. Legs are no edema, no swelling. Central nervous system: No focal deficits. LAB STUDIES: WBC 10.8, hemoglobin 12.4. ASSESSMENT: 1. Chronic obstructive pulmonary disease acute exacerbation with acute bilateral pneumonia possibly gram-negative with right middle lobe pneumonia, prominently with slow improvement. 2. Recent influenza A currently influenza test negative. 3. Fibromyalgia. 4. History of rheumatoid arthritis. 5. History of hernia repair. 6. History of anxiety. RECOMMENDATIONS AND DISCUSSION: Recommend to continue current medications, management and symptomatic treatment. Otherwise, at this time, closely follow with pulmonary. Continue the high-dose of IV steroids. Closely follow with pulmonary. Guarded prognosis. Further recommendations to follow. MMODL / IJN: [id number] /
[2019-01-14 23:10] LABS: Glucose,Whole Blood 220 mg/dL (75-99)
[2019-01-15] MEDS: methylPREDNISolone SOD SUCCI 125 MG/2 ML VIAL IV SCH ×2 (05:12→11:26)
[2019-01-15] MEDS: LORazepam 0.5 MG TAB PO PRN ×4 (05:12→23:52)
[2019-01-15 07:21] LABS: Glucose,Whole Blood 141 mg/dL (75-99)
[2019-01-15] MEDS: guaiFENesin 600 MG TABLET.ER PO SCH ×2 (08:12→21:51)
[2019-01-15] MEDS: FAMOTIDINE 20 MG TAB PO SCH ×2 (08:13→21:52)
[2019-01-15] MEDS: INSULIN ASPART (NovoLOG) 100 UNIT/ML VIAL SQ SCH ×4 (08:13→21:52)
[2019-01-15] MEDS: PIPERACILLIN-TAZOBACTAM 3.375 GM in SODIUM CHLORIDE 0.9% 100 ML IVPB SCH ×3 (08:14→23:52)
[2019-01-15 08:38] LABS: Basophils % (A) 0 %; Eosinophils % (A) 0 %; HCT 38.8 % (34.0-46.0); HGB 12.6 gm/dL (11.4-16.0); Lymphocytes # (A) 0.8 k/uL (1.0-4.8); Lymphocytes % (A) 8 %; MCHC 32.5 g/dL (31.0-37.0); MCV 86.4 fL (80.0-100.0); Mean Platelet Volume 7.1; Monocytes # (A) 0.4 k/uL (0-1.0); Monocytes % (A) 4 %; Neutrophils # (A) 8.2 k/uL (1.3-7.7); Neutrophils % (A) 87 %; Platelet Count 376 k/uL (150-450); RDW 14.1 % (11.5-15.5); WBC 9.5 k/uL (3.8-10.6)
[2019-01-15 08:53] LABS: Anion Gap 5 mmol/L; Blood Urea Nitrogen 18 mg/dL (7-17); Calcium 8.7 mg/dL (8.4-10.2); Carbon Dioxide 28 mmol/L (22-30); Chloride 107 mmol/L (98-107); Glucose 134 mg/dL (74-99); Potassium 4.1 mmol/L (3.5-5.1); Sodium 140 mmol/L (137-145)
[2019-01-15 11:14] LABS: Glucose,Whole Blood 163 mg/dL (75-99)
--- NOTE | 2019-01-15 16:13 | PN ---
PROGRESS NOTE DATE OF SERVICE: 01/15/2019 This patient has been hemodynamically stable. She is less short of breath but is not back to baseline. On physical examination her vitals are stable. She is afebrile. Her chest reveals prolonged expiration. Cardiovascular system is in S1, S2. Abdomen is soft. There is no edema. IMPRESSION AT THIS TIME: Severe chronic obstructive pulmonary disease with asthma with acute exacerbation. Continue Zosyn, montelukast, and she will benefit from a prolonged steroid taper. Discharge planning for tomorrow would be appropriate if she is otherwise stable. She was counseled regarding her condition and this approach. I did discuss my thoughts with the patient's physician, Dr. Willam Gonzáles. MMODL / IJN: [id number] /
[2019-01-15] MEDS: predniSONE 20 MG TAB PO SCH (16:54)
[2019-01-15 17:45] LABS: Glucose,Whole Blood 171 mg/dL (75-99)
[2019-01-15 21:21] LABS: Glucose,Whole Blood 134 mg/dL (75-99)
[2019-01-15] MEDS: MONTELUKAST 10 MG TAB PO SCH (21:50)
[2019-01-15] MEDS: LEVOFLOXACIN 750 MG TAB PO SCH (21:51)
--- NOTE | 2019-01-15 22:52 | PN ---
PROGRESS NOTE DATE OF SERVICE: 01/15/2019 This 58-year-old woman who was admitted with COPD, acute exacerbation, as well as pneumonia is being closely monitored. No chest pain. No palpitations. No fever. On exam, alert and oriented x3. Pulse 73, blood pressure 131/77, respiration 16, temperature 98 degrees, pulse ox 97% on 4 L. HEENT: Conjunctivae normal. NECK: No jugular venous distention. CARDIOVASCULAR SYSTEM: S1, S2 muffled. RESPIRATORY SYSTEM: Breath sounds diminished at the bases. A few scattered rhonchi and crackles. ABDOMEN: Soft. NERVOUS SYSTEM: No focal deficit. LABS: Accu-Cheks 161, 171. ASSESSMENT: 1. Chronic obstructive pulmonary disease, acute exacerbation, with acute bilateral pneumonia, possibly gram-negative, with right middle lobe pneumonia more prominently, with some improvement. 2. Recent influenza A. Currently influenza negative. 3. Fibromyalgia. 4. History of rheumatoid arthritis. 5. History of hernia repair. 6. History of anxiety. RECOMMENDATIONS AND DISCUSSION: I recommend to continue current medications, continue with the monitoring, symptomatic treatment. Continue the bronchodilators. Closely follow with Pulmonary. Prognosis is guarded because of multiple complex medical issues. Further recommendations to follow. MMODL / IJN: [id number] /
[2019-01-16 06:50] LABS: Glucose,Whole Blood 128 mg/dL (75-99)
[2019-01-16] MEDS: INSULIN ASPART (NovoLOG) 100 UNIT/ML VIAL SQ SCH ×4 (07:31→21:34)
[2019-01-16] MEDS: guaiFENesin 600 MG TABLET.ER PO SCH ×2 (07:32→21:39)
[2019-01-16] MEDS: predniSONE 20 MG TAB PO SCH (07:32)
[2019-01-16] MEDS: PIPERACILLIN-TAZOBACTAM 3.375 GM in SODIUM CHLORIDE 0.9% 100 ML IVPB SCH ×3 (07:32→23:22)
[2019-01-16] MEDS: FAMOTIDINE 20 MG TAB PO SCH ×2 (07:33→21:39)
[2019-01-16] MEDS: LORazepam 0.5 MG TAB PO PRN ×3 (08:09→21:40)
[2019-01-16 11:42] LABS: Glucose,Whole Blood 130 mg/dL (75-99)
[2019-01-16 11:49] VITALS: RESP 18
--- NOTE | 2019-01-16 12:15 | P.CRDCN ---
History of Present Illness History of present illness: This is a pleasant 58 showed female past medical history significant for COPD, fibromyalgia, brain aneurysm status post coil and stent placement, former nicotine dependence and rheumatoid arthritis. She denies history of coronary artery disease, hypertension or dyslipidemia. We've been asked to see her in consultation secondary to chest discomfort. She presented to the [facility] with symptoms of shortness of breath and has been diagnosed with an acute exacerbation of COPD along with pneumonia. There was question about whether or not she had influenza diagnosis prior to admission however testing for influenza been negative here since admission. She is seen and examined sitting up in bed in no acute distress. She states her breathing has improved since admission however she continues to have discomfort in the left precordial region that radiates into the left shoulder. The pain is reproducible on palpation as well as worse when she takes in a deep breath or coughs. There is no associated dizziness, nausea, vomiting, diaphoresis or palpitations. She has seen Dr. Christianson in the office in 2017 and underwent a Lexiscan stress test that was negative for reversible cardiac ischemia with ejection fraction of 55%. EKG on admission reveals sinus mechanism with nonspecific T-wave abnormalities. Chest x-ray reveals bilateral infiltrates with underlying COPD. Laboratory data reviewed, cardiac enzymes negative 1 on admission, WBC 9.5, hemoglobin 12.6, platelets 376, sodium 140, potassium 4.1, creatinine 0.59, NT proBNP on admission 58. She takes no daily cardiac medications. At the time of my exam: CONSTITUTIONAL: Denies fever. Denies chills. EYES: Denies blurred vision. Denies vision changes. Denies eye pain. EARS, NOSE, MOUTH & THROAT: Denies headache. Denies sore throat. Denies ear pain. CARDIOVASCULAR: Complains of pleuritic, reproducible chest pain. Complains of shortness of breath. Denies orthopnea. Denies PND. Denies palpitations. RESPIRATORY: Complains of cough. GASTROINTESTINAL: Denies abdominal pain. Denies diarrhea. Denies constipation. Denies nausea. Denies vomiting. MUSCULOSKELETAL: Denies myalgias. INTEGUMENTARY: Denies pruitis. Denies rash. NEUROLOGIC: Denies numbness. Denies tingling. Denies weakness. PSYCHIATRIC: Denies anxiety. Denies depression. ENDOCRINE: Denies fatigue. Denies weight change. Denies polydipsia. Denies poly urina. GENITOURINARY: Denies burning, hematuria or urgency with micturation. HEMATOLOGIC: Denies history of anemia. Denies bleeding. Blood pressure 139/83 heart rate 67 afebrile maintaining oxygen saturation on room air. GENERAL: This is a 58-year-old female in no apparent distress at the time of my examination. HEENT: Head is atraumatic, normocephalic. Pupils are equal, round. Sclerae anicteric. Conjunctivae are clear. Mucous membranes of the mouth are moist. Neck is supple. There is no jugular venous distention. No carotid bruit is heard. LUNGS: Clear to auscultation no wheezes, rales or rhonchi. No chest wall tenderness is noted on palpation or with deep breathing. Diminished bilaterally. HEART: Regular rate and rhythm without murmurs, rubs or gallops. S1 and S2 heard. ABDOMEN: Soft, nontender. Bowel sounds are heard. No organomegaly noted. EXTREMITIES: No evidence of peripheral edema and no calf tenderness noted. VASCULAR: Radial and dorsalis pedis pulses palpated, no evidence of clubbing. NEUROLOGIC: Patient is awake, alert and oriented x3. ASSESSMENT Pleuritic, reproducible chest discomfort. Atypical for angina. No EKG evidence of ischemia. Pneumonia Acute exacerbation of COPD Former nicotine dependence PLAN Obtain second troponin to rule out an acute coronary event. Obtain 2-D echocardiogram and Doppler study to assess cardiac structure and function. Symptoms are very atypical for angina most likely related to underlying pneumonia and COPD. Follow-up upon discharge with Dr. Christianson for outpatient stress testing when respiratory illnesses have subsided. Thank you kindly for this consultation. Nurse Practitioner note has been reviewed, I agree with a documented findings and plan of care. Patient was seen and examined. 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 HEMORRHOIDECTOMY, RT INGUINAL HERNIA, D&C Past Anesthesia/Blood Transfusion Reactions: No Reported Reaction Past Psychological History: Anxiety Smoking Status: Former smoker Past Alcohol Use History: None Reported Additional Past Alcohol Use History / Comment(s): SMOKED FOR 40 YEARS, QUIT JANUARY [address] DOWN FROM 3 PPD TO 1/2 PPD THEN QUIT. Past Drug Use History: None Reported - Past Family History Father Family Medical History: Cancer Additional Family Medical History / Comment(s): STOMACH/THROAT CANCER Mother Family Medical History: Myocardial Infarction ([place]) Medications and Allergies Home Medications Medication Instructions Recorded Confirmed Type Acetaminophen Tab [Tylenol] 650 mg PO Q6HR PRN tab 01/06/19 01/10/19 Rx Doxycycline [Vibramycin] 100 mg PO BID #8 cap 01/06/19 01/10/19 Rx Famotidine [Pepcid] 20 mg PO BID #60 tab 01/06/19 01/10/19 Rx Oseltamivir [Tamiflu] 75 mg PO Q12HR #5 cap 01/06/19 01/10/19 Rx guaiFENesin SYRUP 100MG/5ML 200 mg PO Q6HR PRN 01/10/19 01/10/19 History [Robitussin] predniSONE See Taper PO DIRECTED 01/10/19 01/10/19 History Allergies Allergy/AdvReac Type Severity Reaction Status Date / Time meperidine [From Demerol] Allergy Rash/Hives/ Verified 01/10/19 16:21 Swelling Physical Exam Vitals: Vital Signs Temp Pulse Pulse Resp BP Pulse Ox 01/16/19 11:49 98.2 F 67 18 139/83 98 01/16/19 08:00 88 16 01/16/19 05:00 97.4 F L 77 16 143/77 100 01/16/19 00:00 88 20 01/15/19 21:00 98 F 81 16 131/77 97 01/15/19 16:00 73 66 18 Intake and Output 01/15/19 01/16/19 01/16/19 22:59 06:59 14:59 Intake Total 100 100 Balance 100 100 Intake: Intake, IV Titration 100 100 Amount Piperacillin-Tazobactam 3 100 100 .375 gm In Sodium Chloride 0.9% 100 ml @ 25 mls/hr IVPB Q8HR [facility] Rx# :[id number] Other: Voiding Method Bedside Commode Bedside Commode Bedside Commode # Voids 1 1 Results 01/15/19 08:12 01/15/19 08:12 Current Medications Generic Name Dose Route Start Last Admin Trade Name Freq PRN Reason Stop Dose Admin Albuterol Sulfate 2.5 mg 01/10/19 20:33 Ventolin Nebulized INHALATION RT-Q2H PRN Shortness Of Breath Or Wheezing Famotidine 20 mg 01/10/19 21:00 01/16/19 07:33 Pepcid PO 20 mg BID JESSICA Administration Guaifenesin 600 mg 01/10/19 21:00 01/16/19 07:32 Mucinex PO 600 mg Q12HR JESSICA Administration Piperacillin Sod/Tazobactam 100 mls @ 25 mls/hr 01/11/19 00:00 01/16/19 07:32 Sod 3.375 gm/ Sodium Chloride IVPB 01/21/19 00:01 25 mls/hr Q8HR JESSICA Administration Insulin Aspart 0 unit 01/10/19 21:00 01/16/19 11:48 Novolog SQ Not Given ACHS JESSICA Protocol Levofloxacin 750 mg 01/11/19 21:00 01/15/19 21:51 Levaquin PO 750 mg HS JESSICA Administration Lorazepam 0.5 mg 01/16/19 11:25 Ativan PO Q6HR PRN Anxiety Miscellaneous Information 1 each 01/10/19 16:42 Pneumonia Protocol Utilized PO ONCE PRN Per Protocol Montelukast Sodium 10 mg 01/11/19 21:00 01/15/19 21:50 Singulair PO 10 mg HS JESSICA Administration Prednisone 60 mg 01/15/19 15:15 01/16/19 07:32 PO 60 mg DAILY JESSICA Administration Intake and Output 01/15/19 01/16/19 01/16/19 22:59 06:59 14:59 Intake Total 100 100 Balance 100 100 Intake: Intake, IV Titration 100 100 Amount Piperacillin-Tazobactam 3 100 100 .375 gm In Sodium Chloride 0.9% 100 ml @ 25 mls/hr IVPB Q8HR [facility] Rx# :[id number] Other: Voiding Method Bedside Commode Bedside Commode Bedside Commode # Voids 1 1 01/15/19 08:12 01/15/19 08:12
--- NOTE | 2019-01-16 12:16 | P.PN ---
Subjective Progress Note Date: 01/16/19 01/16/2019: Patient seen and examined. Patient is currently 96% on room air. She is tearful and states that someone is trying to decrease her Xanax every 8 hours. She states she can't even get out of bed because she is so short of breath. She denies fevers and chills. She states that she does not feel like she can go home. Again she is tearful stating that she doesn't want to go home and then have to come back. She states not being able to appreciate is very scary for her. Objective - Vital Signs Vital signs: Vital Signs Temp 98.2 F 01/16/19 11:49 Pulse 67 01/16/19 11:49 Resp 18 01/16/19 11:49 BP 139/83 01/16/19 11:49 Pulse Ox 98 01/16/19 11:49 Intake & Output 01/15/19 01/16/19 01/16/19 18:59 06:59 18:59 Intake Total 100 200 Balance 100 200 Intake: Intake, IV Titration 100 200 Amount Piperacillin-Tazobactam 3 100 200 .375 gm In Sodium Chloride 0.9% 100 ml @ 25 mls/hr IVPB Q8HR [facility] Rx# :[id number] Other: Voiding Method Bedside Commode Bedside Commode Bedside Commode # Voids 2 1 - Exam Gen.: Patient is alert and oriented 3, no acute distress Cardiovascular: Regular rate and rhythm, S1/S2 Lungs: Diminished breath sounds bilaterally with prolonged expiration Abdomen: Soft nontender nondistended positive bowel sounds Extremities: No edema - Labs CBC & Chem 7: 01/15/19 08:12 01/15/19 08:12 Labs: Abnormal Lab Results - Last 24 Hours (Table) 01/15/19 01/15/19 01/16/19 Range/Units 17:32 21:11 06:49 POC Glucose (mg/dL) 171 H 134 H 128 H (75-99) mg/dL 01/16/19 Range/Units 11:40 POC Glucose (mg/dL) 130 H (75-99) mg/dL Microbiology - Last 24 Hours (Table) 01/10/19 17:04 Blood Culture - Preliminary Blood No Growth after 120 hours Assessment and Plan Assessment: Acute exacerbation of COPD and emphysema, severe, FEV1 41% of predicted Bronchospasm Recent Influenza A Bibasilar pneumonia Pharyngitis Bibasilar atelectasis Unchanged Multiple pulmonary nodules, left lower lobe measuring 7.1 mm an 8.2 mm, right lower lobe 7.5 mm History of tobacco abuse, in remission Chronic migraines O2 to maintain saturation greater than or equal to 88%, currently on RA Continued tobacco cessation strongly recommended She will need repeat chest CT as an outpatient in 12 months ABX: Levaquin, Zosyn Steroid taper IS and pulmonary hygiene GI and DVT prophylaxis Consult social work and case management regarding discharge options, patient states she does not want to go home Consult Dr. Dejesus for possible IPR Patient adamantly declines inhalers/nebulizer despite education Continue Xanax, states she gets very anxious when she can't breathe Outpatient pulmonary rehab
--- NOTE | 2019-01-16 13:20 | P.CONS ---
History of Present Illness - Chief Complaint Medical debility - History of Present Illness I had the opportunity to see patient for inpatient rehab consultation with regard to medical debility. She was admitted to [facility] January 10 with shortness of breath. Seen by Dr. Garcia's who notes exacerbation COPD and emphysema. Also seen by cardiology. Chest x-ray demonstrates bilateral infiltrate and COPD. OT reports modified independent with toileting and supervision for upper/lower dressing, bathing and transfers. Wrecking mending 24-hour supervision of family. Patient declined last 3 PT sessions. Previous functional history as elicited from patient: 58-year-old right-handed white female who is single lives and 2 floor home with son and his family. [id number] does the cooking and laundry. Patient receives assistance for shower, dress and gait with 4 wheeled walker. Describes independent with driving and drove just prior to admission. History smoking but doesn't smoke or drink currently. Dr. Riggs is regular doctor. Family history of father with cancer and mother with heart disease. Review of Systems Review of systems: ENT: Denies sneezes or discharge. Eyes: Denies discharge or photophobia. Cardiac: Denies chest pain or palpitation. Pulmonary: Mild shortness of breath. Breast: Denies discharge or lumps. Gastrointestinal: Denies nausea, emesis, constipation, diarrhea. Genitourinary: Denies discharge or frequency. Musculoskeletal: Denies muscle or bone aches. Neurologic: At least mild generalized weakness. Endocrine: Denies shakes or sweats. Oncology: Denies cancers. Dermatologic: Denies rash, itching, pruritus. ALLERGY/immunology: Denies sneezes, rashes. 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 HEMORRHOIDECTOMY, RT INGUINAL HERNIA, D&C Past Anesthesia/Blood Transfusion Reactions: No Reported Reaction Past Psychological History: Anxiety Smoking Status: Former smoker Past Alcohol Use History: None Reported Additional Past Alcohol Use History / Comment(s): SMOKED FOR 40 YEARS, QUIT JANUARY [address] DOWN FROM 3 PPD TO 1/2 PPD THEN QUIT. Past Drug Use History: None Reported - Past Family History Father Family Medical History: Cancer Additional Family Medical History / Comment(s): STOMACH/THROAT CANCER Mother Family Medical History: Myocardial Infarction ([place]) Medications and Allergies Home Medications Medication Instructions Recorded Confirmed Type Acetaminophen Tab [Tylenol] 650 mg PO Q6HR PRN tab 01/06/19 01/10/19 Rx Doxycycline [Vibramycin] 100 mg PO BID #8 cap 01/06/19 01/10/19 Rx Famotidine [Pepcid] 20 mg PO BID #60 tab 01/06/19 01/10/19 Rx Oseltamivir [Tamiflu] 75 mg PO Q12HR #5 cap 01/06/19 01/10/19 Rx guaiFENesin SYRUP 100MG/5ML 200 mg PO Q6HR PRN 01/10/19 01/10/19 History [Robitussin] predniSONE See Taper PO DIRECTED 01/10/19 01/10/19 History Allergies Allergy/AdvReac Type Severity Reaction Status Date / Time meperidine [From Demerol] Allergy Rash/Hives/ Verified 01/10/19 16:21 Swelling Physical Exam Vitals: Vital Signs Temp Pulse Pulse Resp BP Pulse Ox 01/16/19 11:49 98.2 F 67 18 139/83 98 01/16/19 08:00 88 16 01/16/19 05:00 97.4 F L 77 16 143/77 100 01/16/19 00:00 88 20 01/15/19 21:00 98 F 81 16 131/77 97 01/15/19 16:00 73 66 18 Intake and Output 01/15/19 01/16/19 01/16/19 22:59 06:59 14:59 Intake Total 100 100 Balance 100 100 Intake: Intake, IV Titration 100 100 Amount Piperacillin-Tazobactam 3 100 100 .375 gm In Sodium Chloride 0.9% 100 ml @ 25 mls/hr IVPB Q8HR [facility] Rx# :[id number] Other: Voiding Method Bedside Commode Bedside Commode Bedside Commode # Voids 1 1 Skin: Good color, texture, turgor. General: Overweight build and comfortable appearance. Head: Normocephalic, atraumatic. Eyes: Symmetric. Pupils equal round. Ears: Symmetric. Hearing within normal limits. Mouth: Clear. Neck: Supple. Carotid without bruit. Cardiac: Regular rate and rhythm. Lungs: Clear anteriorly and posteriorly. Abdomen: Soft active nontender. Extremities: Normal tone. Neurological: Mental status: Alert, cooperative, pleasant. Cranial nerves: Symmetric facial tone and trapezius. Motor: Active movement all 4 limbs. Sensation: Intact throughout. DTRs: Symmetric and equal throughout. Mobility: Sits and stands without assistance or verbal cueing or loss of balance. But wasn't happy about it. Results CBC & Chem 7: 01/15/19 08:12 01/15/19 08:12 Labs: Abnormal Lab Results - Last 24 Hours (Table) 01/15/19 01/15/19 01/16/19 Range/Units 17:32 21:11 06:49 POC Glucose (mg/dL) 171 H 134 H 128 H (75-99) mg/dL 01/16/19 Range/Units 11:40 POC Glucose (mg/dL) 130 H (75-99) mg/dL Microbiology - Last 24 Hours (Table) 01/10/19 17:04 Blood Culture - Preliminary Blood No Growth after 120 hours Assessment and Plan (1) COPD exacerbation Current Visit: Yes Status: Acute Code(s): J44.1 - CHRONIC OBSTRUCTIVE PULMONARY DISEASE W (ACUTE) EXACERBATION SNOMED Code(s): 029007043 Plan: Impression: 1. Medical debility. 2. COPD and emphysema exacerbation. 3. Fibromyalgia. 4. Rheumatoid arthritis. Comments and plan: OT ongoing in PT prescribed. Patient appears to be declining PT. She reports to me that she will not except inpatient rehab if offered. Patient plan is to return home with supportive family. If she does other support, this appears to be a reasonable discharge plan. At this time, patient appears to be functioning too well for inpatient rehab and presents of poor attitude for inpatient rehab, as well.
[2019-01-16 16:41] LABS: Glucose,Whole Blood 140 mg/dL (75-99)
--- NOTE | 2019-01-16 19:23 | PN ---
PROGRESS NOTE DATE OF SERVICE: 01/16/2019 This 58-year-old woman was admitted with COPD acute exacerbation, acute bilateral pneumonia, we complaining of shortness of breath. The patient also had recent influenza A. Multiple consultants are following the patient. No chest pain. No palpitations. No fever. EXAM: Alert and oriented times three. Pulse 67, blood pressure 130/80. Respirations 18. Temperature 98.2, pulse ox 98% on 2 L. HEENT: Conjunctivae normal. Neck is no jugular venous distention. No carotid bruit. CARDIOVASCULAR: S1, S2 muffled. Respirations: Breath sounds diminished in the bases. Bilateral scattered rhonchi and crackles. Abdomen is soft. Central nervous system: No focal deficits. LABORATORY DATA: CBC and BMP noted. ASSESSMENT: 1. Chronic obstructive pulmonary disease acute exacerbation with acute bilateral pneumonia possibly gram-negative with right middle lobe pneumonia more prominently with slow improvement. 2. Recent influenza A currently influenza negative. 3. Fibromyalgia. 4. History of rheumatoid arthritis. 5. History of hernia repair. 6. History of anxiety. RECOMMENDATIONS AND DISCUSSION: This 58-year-old woman who presented with multiple medical issues, we will monitor the patient closely, continue the current management and symptomatic treatment. Otherwise, continue the bronchodilators. Continue with p.o. steroids. Continue with antibiotics. Guarded prognosis because of multiple complex medical issues. Further recommendations to follow. MMODL / IJN: [id number] /
[2019-01-16 21:33] LABS: Glucose,Whole Blood 96 mg/dL (75-99)
[2019-01-16] MEDS: MONTELUKAST 10 MG TAB PO SCH (21:39)
[2019-01-16] MEDS: LEVOFLOXACIN 750 MG TAB PO SCH (21:39)
[2019-01-17] MEDS: LORazepam 0.5 MG TAB PO PRN ×2 (05:55→11:42)
[2019-01-17 07:04] LABS: Glucose,Whole Blood 86 mg/dL (75-99)
[2019-01-17] MEDS: INSULIN ASPART (NovoLOG) 100 UNIT/ML VIAL SQ SCH ×2 (07:31→11:36)
[2019-01-17] MEDS: PIPERACILLIN-TAZOBACTAM 3.375 GM in SODIUM CHLORIDE 0.9% 100 ML IVPB SCH (08:25)
[2019-01-17] MEDS: guaiFENesin 600 MG TABLET.ER PO SCH (09:00)
[2019-01-17] MEDS: FAMOTIDINE 20 MG TAB PO SCH (09:00)
[2019-01-17] MEDS: predniSONE 20 MG TAB PO SCH (09:00)
--- NOTE | 2019-01-17 10:32 | ECHOF ---
Referral Reason:cp MEASUREMENTS -------- HEIGHT: 165.1 cm WEIGHT: 73.9 kg BP: 139/83 RVIDd: 2.6 cm (< 3.3) IVSd: 1.1 cm (0.6 - 1.1) LVIDd: 3.6 cm (3.9 - 5.3) LVPWd: 1.4 cm (0.6 - 1.1) IVSs: 1.6 cm LVIDs: 1.8 cm LVPWs: 1.5 cm Ao Diam: 2.9 cm (2.0 - 3.7) AV Cusp: 1.3 cm (1.5 - 2.6) LA Diam: 3.1 cm (2.7 - 3.8) MV EXCURSION: 17.007 mm (> 18.000) MV EF SLOPE: 83 mm/s (70 - 150) EPSS: 1.8 cm MV E Brent: 0.78 m/s MV DecT: 189 ms MV A Brent: 0.89 m/s MV E/A Ratio: 0.88 RAP: 15.00 mmHg RVSP: 31.10 mmHg FINDINGS -------- Sinus rhythm. This was a technically good study. The left ventricular size is normal. There is mild concentric left ventricular hypertrophy. Overa ll left ventricular systolic function is normal with, an EF between 55 - 60 %. The right ventricle is normal in size. The left atrial size is normal. The right atrial size is normal. The aortic valve is trileaflet and appears structurally normal. The mitral valve leaflets are mildly thickened. Mild mitral regurgitation is present. Mild tricuspid regurgitation present. The right ventricular systolic pressure, as measured by Doppl er, is 31.10mmHg. There is no pulmonic regurgitation present. The aortic root size is normal. The inferior vena cava is mildly dilated. CONCLUSIONS -------- 1. Sinus rhythm. 2. This was a technically good study. 3. The left ventricular size is normal. 4. There is mild concentric left ventricular hypertrophy. 5. Overall left ventricular systolic function is normal with, an EF between 55 - 60 %. 6. The right ventricle is normal in size. 7. The left atrial size is normal. 8. The right atrial size is normal. 9. The aortic valve is trileaflet and appears structurally normal. 10. The mitral valve leaflets are mildly thickened. 11. Mild mitral regurgitation is present. 12. Mild tricuspid regurgitation present. 13. The right ventricular systolic pressure, as measured by Doppler, is 31.10mmHg. 14. There is no pulmonic regurgitation present. 15. The aortic root size is normal. 16. The inferior vena cava is mildly dilated. COMPUTER HARDWARE DESIGNER: Bri Goldstein RDCS
[2019-01-17 11:35] LABS: Glucose,Whole Blood 107 mg/dL (75-99)
[2019-01-17 12:33] VITALS: BP 127/78; PULSE 86; TEMP 98.7
--- NOTE | 2019-01-18 07:54 | DS ---
DISCHARGE SUMMARY DATE OF SERVICE: 01/17/2019 FINAL DIAGNOSES: 1. Chronic obstructive pulmonary disease acute exacerbation with acute bilateral pneumonia possibly gram-negative with right middle lobe pneumonia with slow improvement, possibly gram-negative. 2. Recent influenza A, currently influenza negative. 3. Fibromyalgia. 4. History of rheumatoid arthritis. 5. History of hernia repair. 6. History of anxiety. DISCHARGE DISPOSITION: The patient will be discharged in stable condition with guarded prognosis. HISTORY OF PRESENT ILLNESS: This 58-year-old woman with a past medical history of multiple medical problems admitted with COPD acute exacerbation with pneumonia. Patient treated in conjunction with Dr. Vanessa Christianson, network infrastructure architect. Patient improved significantly. On exam, vitals are stable. CARDIOVASCULAR: S1, S2 muffled. RESPIRATORY: A few scattered rhonchi. ABDOMEN: Soft. NERVOUS SYSTEM: No focal deficit. DISCHARGE ADVICE: 1. Diet is cardiac. 2. Activity limited until followup. 3. Follow up with Dr. Gavin in 2 to 3 days. 4. Follow up with Dr. Alice Christianson as recommended. 5. Follow up with Pulmonology as recommended. MEDICATIONS: 1. Robitussin 200 mg q.6 p.r.n. 2. Ativan 0.5 mg q.6 p.r.n. for anxiety. 3. Levaquin 750 mg p.o. daily for 7 days. 4. Pepcid 20 mg p.o. b.i.d. 5. Prednisone 40 mg for 3 days, 30 for 3 days, 20 for 3 days 10 for 3 days. 6. Albuterol 2 puffs q.6. 7. Singulair 10 mg q.h.s. 8. Symbicort 160/4.5 one puff b.i.d. 9. Tylenol p.r.n. Once again, the patient will be discharged in stable condition with guarded prognosis. MMODL / IJN: [id number] /
== END 2019-01-17 15:10 | disposition home or self-care (01) | DRG 178 ==
LOC: EC 15:17 → 3NMEDONC 16:13
PROVIDERS: ADMIT Hospitalist; ATTEND Hospitalist
DX: J15.6 Pneumonia due to other Gram-negative bacteria (principal); J44.0 Chronic obstructive pulmonary disease with (acute) lower respiratory infection; J44.1 Chronic obstructive pulmonary disease with (acute) exacerbation; J45.901 Unspecified asthma with (acute) exacerbation; J98.11 Atelectasis; G43.909 Migraine, unspecified, not intractable, without status migrainosus; M06.9 Rheumatoid arthritis, unspecified; M79.7 Fibromyalgia; R09.02 Hypoxemia; Z80.8 Family history of malignant neoplasm of other organs or systems; Z82.49 Family history of ischemic heart disease and other diseases of the circulatory system; Z87.891 Personal history of nicotine dependence; Z90.710 Acquired absence of both cervix and uterus; F41.9 Anxiety disorder, unspecified; Z79.52 Long term (current) use of systemic steroids; Z79.899 Other long term (current) drug therapy; Z87.01 Personal history of pneumonia (recurrent); Z88.5 Allergy status to narcotic agent; Z80.0 Family history of malignant neoplasm of digestive organs; R91.8 Other nonspecific abnormal finding of lung field; R53.81 Other malaise
CPT/HCPCS: 36415; 71046; 80048; 80053; 83735; 83880; 84484; 85025; 85652; 86140; 86738; 87040; 87449; 87502; 93005; 93306; 96365; 96375; 99285

== ENCOUNTER → 2019-01-22 | Outpatient (CLI) | payer OTHER ==
[2019-01-22 13:23] LABS: Basophils % (A) 0 %; Eosinophils # (A) 0.1 k/uL (0-0.7); Eosinophils % (A) 1 %; HCT 42.1 % (34.0-46.0); HGB 13.3 gm/dL (11.4-16.0); Lymphocytes % (A) 10 %; MCH 28.7 pg (25.0-35.0); MCHC 31.6 g/dL (31.0-37.0); MCV 90.9 fL (80.0-100.0); Mean Platelet Volume 7.5; Monocytes # (A) 0.2 k/uL (0-1.0); Monocytes % (A) 3 %; Neutrophils # (A) 8.3 k/uL (1.3-7.7); Neutrophils % (A) 86 %; Platelet Count 360 k/uL (150-450); RBC 4.63 m/uL (3.80-5.40); RDW 15.4 % (11.5-15.5); WBC 9.6 k/uL (3.8-10.6)
[2019-01-22 18:47] LABS: Anion Gap 11.3 mmol/L (4.00-12.00); Calcium 8.8 mg/dL (8.7-10.3); Carbon Dioxide 27.7 mmol/L (21.6-31.8); Potassium 3.8 mmol/L (3.5-5.5)
== END | disposition home or self-care (01) ==
LOC: LABWHC1 10:54
PROVIDERS: ATTEND Hospitalist
DX: J18.9 Pneumonia, unspecified organism (principal)
CPT/HCPCS: 36415; 80048; 85025

== ENCOUNTER 2021-09-01 18:56 | Emergency (ER) | payer OTHER ==
--- NOTE | 2021-09-01 20:44 | ED ---
General Adult HPI <Fidelina Esquivel - Last Filed: 09/01/21 20:39> <Jose Rogers - Last Filed: 09/01/21 22:54> - General Stated complaint: SOB Time Seen by Provider: 09/01/21 20:39 - History of Present Illness Initial comments: 61 year-old female patient presents for evaluation of worsening shortness of breath. Patient states that a week ago she tested positive for COVID with pneumonia. She was admitted overnight at [facility] and discharged once they determined her symptoms were caused by COVID. Denies being on any medications. She has had symptoms for the last 10 days. She reports intermittent fever. States her symptoms are wosrening. She is unable to do any activity or lay down due to trouble breathing. Denies any chest pain. She is still coughing. History significant for COPD, denies using any inhalers or dolores athing treatments. (Fidelina Esquivel) - Related Data Home Medications Medication Instructions Recorded Confirmed guaiFENesin SYRUP 100MG/5ML 200 mg PO Q6HR PRN 01/10/19 01/10/19 [Robitussin] Previous Rx's Medication Instructions Recorded Acetaminophen Tab [Tylenol] 650 mg PO Q6HR PRN tab 01/06/19 Famotidine [Pepcid] 20 mg PO BID #60 tab 01/06/19 Albuterol Sulfate [Proair Hfa] 2 puff INHALATION Q6HR #1 inhaler 01/17/19 Budesonide/Formoterol Fumarate 1 puff IH BID #1 hfa.aer.ad 01/17/19 [Symbicort 160-4.5 Mcg Inhaler] LORazepam [Ativan] 0.5 mg PO Q6HR PRN #15 tab 01/17/19 Levofloxacin [Levaquin] 750 mg PO HS #7 tab 01/17/19 Montelukast [Singulair] 10 mg PO HS #30 tab 01/17/19 predniSONE 10 mg PO DIRECTED #30 tab 01/17/19 Levofloxacin [Levaquin] 500 mg PO DAILY #10 tab 09/01/21 predniSONE 50 mg PO DAILY #5 tab 09/01/21 Allergies Allergy/AdvReac Type Severity Reaction Status Date / Time meperidine [From Demerol] Allergy Rash/Hives/ Verified 09/01/21 20:45 Swelling Review of Systems ROS Other: All systems not noted in ROS Statement are negative. <Fidelina Esquivel - Last Filed: 09/01/21 20:39> ROS Other: All systems not noted in ROS Statement are negative. <Jose Rogers - Last Filed: 09/01/21 22:54> ROS Statement: Those systems with pertinent positive or pertinent negative responses have been documented in the HPI. 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 HEMORRHOIDECTOMY, RT INGUINAL HERNIA, D&C Past Anesthesia/Blood Transfusion Reactions: No Reported Reaction Past Psychological History: Anxiety Past Alcohol Use History: None Reported Additional Past Alcohol Use History / Comment(s): SMOKED FOR 40 YEARS, QUIT JANUARY [address] DOWN FROM 3 PPD TO 1/2 PPD THEN QUIT. Past Drug Use History: None Reported - Past Family History Father Family Medical History: Cancer Additional Family Medical History / Comment(s): STOMACH/THROAT CANCER Mother Family Medical History: Myocardial Infarction ([place]) <Fidelina Esquivel - Last Filed: 09/01/21 20:39> General Exam General appearance: alert, in no apparent distress Head exam: Present: atraumatic, normocephalic, normal inspection Eye exam: Present: normal appearance, PERRL, EOMI. Absent: scleral icterus, conjunctival injection, periorbital swelling ENT exam: Present: normal exam, mucous membranes moist Neck exam: Present: normal inspection Respiratory exam: Present: normal lung sounds bilaterally. Absent: respiratory distress, wheezes, rales, rhonchi, stridor Cardiovascular Exam: Present: regular rate, normal rhythm, normal heart sounds. Absent: systolic murmur, diastolic murmur, rubs, gallop, clicks GI/Abdominal exam: Present: soft, normal bowel sounds. Absent: distended, tenderness, guarding, rebound, rigid Extremities exam: Present: normal inspection, full ROM, normal capillary refill. Absent: tenderness, pedal edema, joint swelling, calf tenderness Neurological exam: Present: alert, oriented X3 Psychiatric exam: Present: normal affect, normal mood Skin exam: Present: warm, dry, intact, normal color. Absent: rash <Jose Rogers - Last Filed: 09/01/21 22:54> Course Vital Signs 09/01/21 20:40 Temperature 99.1 F Pulse Rate 112 H Respiratory 20 Rate Blood Pressure 138/83 O2 Sat by Pulse 91 L Oximetry Medical Decision Making <Jose Rogers - Last Filed: 09/01/21 22:54> - Medical Decision Making 61-year-old female that was recently diagnosed with Covid pneumonia presenting to the emergency department. Patient states she wants antibiotics and steroid because she's had pneumonia in the past and this is what her doctor usually gives her. Patient was informed that Covid pneumonia is caused by a virus and is due to fluid infiltration of the lungs. Patient is agreeable with discharge home with antibiotics at this time. 500 mg of Levaquin ordered. Case discussed with Dr. Read, patient discharge home. (Jose Rogers) Disposition <Fidelina Esquivel - Last Filed: 09/01/21 20:39> Is patient prescribed a controlled substance at d/c from ED?: No Time of Disposition: 22:53 <Jose Rogers - Last Filed: 09/01/21 22:54> Clinical Impression: Pneumonia due to COVID-19 virus Disposition: HOME SELF-CARE Condition: Stable Instructions (If sedation given, give patient instructions): Coronavirus Disease 2019 (COVID-19) Additional Instructions: Please return to the Emergency Department if symptoms worsen or any other concerns. Follow-up primary care 1-2 days. Take antibiotics as prescribed. Avoid any strenuous activity or exercise. Referrals: None,Stated [Primary Care Provider] - 1-2 days
[2021-09-01 20:45] VITALS: BP 138/83; PULSE 112; RESP 20; TEMP 99.1
[2021-09-01] MEDS ORDERED: LEVOFLOXACIN 500 MG TAB PO STA (22:31)
== END 2021-09-01 23:09 | disposition home or self-care (01) ==
LOC: EC 18:56
DX: U07.1 COVID-19 (principal); J12.82 Pneumonia due to coronavirus disease 2019; J44.9 Chronic obstructive pulmonary disease, unspecified; M79.7 Fibromyalgia; M06.9 Rheumatoid arthritis, unspecified; F41.9 Anxiety disorder, unspecified; Z87.891 Personal history of nicotine dependence; Z79.52 Long term (current) use of systemic steroids; Z79.51 Long term (current) use of inhaled steroids; Z79.899 Other long term (current) drug therapy
CPT/HCPCS: 99284